=== PATIENT | female | born 1995 | race Caucasian/White ===

== ENCOUNTER 2017-01-10 02:45 | Inpatient (IN) | payer BC ==
[~2017-01-10] VITALS: Ht 170.2 cm; Wt 75.0 kg
[~2017-01-10 02:45] MED LIST: MTR600X PO; PRENTAB26 PO
[2017-01-10] MEDS ORDERED: SODIUM CHLORIDE 0.9% 1000ML 1,000 ML IV STA ×2 (02:55)
[2017-01-10] MEDS ORDERED: MoRPHine SULFATE 4 MG/ML 1 ML CARP\\VIAL IV STA ×2 (02:55→13:31)
[2017-01-10] MEDS ORDERED: ONDANSETRON INJ 2 MG/ML 2 ML VIAL IV STA (02:55)
[2017-01-10 03:18] LABS: BASO % 0.5 %; BASO ABS # 0.05 K/uL (0-0.2); COMPLETE YES; EOS % 1.4 %; HEMATOCRIT 39.4 % (37-47); IG% 0.2 %; LYMPH % 33.3 %; LYMPH ABS # 3.63 K/uL (1.2-3.4); MEAN CORPUSCULAR HEMOGLOBIN 29.5 pg (25-34); MEAN CORPUSCULAR HGB CONC 34.3 g/dl (32-36); MEAN PLATELET VOLUME 10.1 fL (7.4-10.4); MONO % 7.7 %; NEUT % 56.9 %; PLATELET COUNT 278 K/uL (130-400); RED BLOOD COUNT 4.58 M/uL (4.2-5.4)
[2017-01-10 03:29] LABS: URINE APPEARANCE CLEAR (CLEAR); URINE BILIRUBIN NEG (NEG); URINE COLOR YELLOW; URINE EPITHELIAL CELL AUTO >30 /lpf (0-5); URINE NITRITE NEG (NEG); URINE PH 6.5 (4.5-7.5); UROBILINOGEN NEG (NEG); ZZUR CULT IF INDIC CLEAN CATCH YES
[2017-01-10 03:30] LABS: MANUAL MICROSCOPIC REQUIRED? NO; REVIEW REQ? YES
[2017-01-10 03:34] LABS: BUN/CREATININE RATIO 21.6 (10-20); POTASSIUM 4.1 mmol/L (3.5-5.1)
[2017-01-10 03:42] LABS: URINE MUCUS PRESENT (NONE PRSENT)
[2017-01-10 03:50] LABS: PREG INTERNAL NEGATIVE QC NEG CLEAR BACKGROUND; PREG INTERNAL POSITIVE QC POS CONTROL LINE
[2017-01-10] MEDS ORDERED: HYDROmorphone INJ 1 MG/ML SYR IV STA (04:30)
--- NOTE | 2017-01-10 05:12 | EMERGENCY ROOM VISIT NOTE ---
History First contact with patient: 02:52 Chief Complaint: PELVIC PAIN Stated Complaint: PELVIC PAIN History of Present Illness The patient is a 21 year old female who presents to the Emergency Room with complaints of sudden onset of pelvic pain after having intercourse with her attempts to have another child. Last menstrual cycle 2 weeks ago. No history of similar symptoms in the past. No new sexual positions or painful or rough intercourse. Pain currently 8 out of 10 described as throbbing, ranging in severity with movement makes it worse and nothing makes it better. Patient denies chest pain, dyspnea, fever, chills, vomiting, diarrhea, back pain, urinary symptoms, vaginal itching or discharge. Patient does not feel at risk for STI's. Review of Systems See HPI for pertinent positives & negatives. A total of 10 systems reviewed and were otherwise negative. Past Medical/Surgical History Medical Problems: (1) (2) Recurrent urinary tract infection Family History Patient reports no known family medical history. Social History Smoking Status: Never Smoker Alcohol Use: none Drug Use: none Marital Status: Housing Status: lives with family Occupation Status: employed, student Current/Historical Medications No Active Prescriptions or Reported Meds Physical Exam Vital Signs Date Time Temp Pulse Resp B/P (MAP) Pulse Ox O2 Delivery O2 Flow Rate FiO2 01/10/17 02:48 36.7 93 18 124/80 98 Room Air Physical Exam VITALS: Vitals are noted on the nurse's note and reviewed by myself. Vital signs stable. GENERAL: Pleasant female in obvious discomfort, nondiaphoretic, well-developed well-nourished. SKIN: Capillary reflex less than 2 seconds. HEENT: Normocephalic. PERRLA. EOMI. Nares patent. Mucous membranes moist. Neck is supple without nuchal rigidity. HEART: Regular rate and rhythm without murmurs gallops or rubs. LUNGS: Clear to auscultation bilaterally without wheezes, rales or rhonchi. No retractions or accessory muscle use. ABDOMEN: Positive bowel sounds x 4. Normal tympanic percussion. Soft, tender to palpation suprapubic area, no CVA tenderness, without masses or organomegaly. Green sign negative. No guarding or rebound tenderness. MUSCULOSKELETAL: No gross musculoskeletal defects. No pedal edema. NEURO: Patient was alert and oriented to person place and time. Normal sensation to light and sharp touch. No focal neurological deficits. Medical Decision & Procedures Laboratory Results 01/10/17 03:05 Red Blood Count 4.58, Mean Corpuscular Volume 86.0, Mean Corpuscular Hemoglobin 29.5, Mean Corpuscular Hemoglobin Concent 34.3, Mean Platelet Volume 10.1, Neutrophils (%) (Auto) 56.9, Lymphocytes (%) (Auto) 33.3, Monocytes (%) (Auto) 7.7, Eosinophils (%) (Auto) 1.4, Basophils (%) (Auto) 0.5, Neutrophils # (Auto) 6.21, Lymphocytes # (Auto) 3.63, Monocytes # (Auto) 0.84, Eosinophils # (Auto) 0.15, Basophils # (Auto) 0.05 01/10/17 03:05 Test 01/10/17 03:00 01/10/17 03:05 Urine Color YELLOW Urine Appearance CLEAR (CLEAR) Urine pH 6.5 (4.5-7.5) Urine Specific [place] 1.030 (1.000-1.030) Urine Protein NEG (NEG) Urine Glucose (UA) NEG (NEG) Urine Ketones NEG (NEG) Urine Occult Blood NEG (NEG) Urine Nitrite NEG (NEG) Urine Bilirubin NEG (NEG) Urine Urobilinogen NEG (NEG) Urine Leukocyte Esterase MODERATE (NEG) Urine WBC (Auto) 10-30 /hpf (0-5) Urine RBC (Auto) 0-4 /hpf (0-4) Urine Hyaline Casts (Auto) 1-5 /lpf (0-5) Urine Epithelial Cells (Auto) >30 /lpf (0-5) Urine Bacteria (Auto) 1+ (NEG) Urine Mucus PRESENT (NONE PRSENT) Urine Sperm (Auto) White Blood Count 10.90 K/uL (4.8-10.8) Red Blood Count 4.58 M/uL (4.2-5.4) Hemoglobin 13.5 g/dL (12.0-16.0) Hematocrit 39.4 % (37-47) Mean Corpuscular Volume 86.0 fL (80-100) Mean Corpuscular Hemoglobin 29.5 pg (25-34) Mean Corpuscular Hemoglobin Concent 34.3 g/dl (32-36) Platelet Count 278 K/uL (130-400) Mean Platelet Volume 10.1 fL (7.4-10.4) Neutrophils (%) (Auto) 56.9 % Lymphocytes (%) (Auto) 33.3 % Monocytes (%) (Auto) 7.7 % Eosinophils (%) (Auto) 1.4 % Basophils (%) (Auto) 0.5 % Neutrophils # (Auto) 6.21 K/uL (1.4-6.5) Lymphocytes # (Auto) 3.63 K/uL (1.2-3.4) Monocytes # (Auto) 0.84 K/uL (0.11-0.59) Eosinophils # (Auto) 0.15 K/uL (0-0.5) Basophils # (Auto) 0.05 K/uL (0-0.2) RDW Standard Deviation 40.6 fL (36.4-46.3) RDW Coefficient of Variation 12.9 % (11.5-14.5) Immature Granulocyte % (Auto) 0.2 % Immature Granulocyte # (Auto) 0.02 K/uL (0.00-0.02) Anion Gap 5.0 mmol/L (3-11) Est Creatinine Clear Calc Drug Dose 93.3 ml/min Estimated GFR () 92.6 Estimated GFR (Non- 79.9 BUN/Creatinine Ratio 21.6 (10-20) Calcium Level 9.0 mg/dl (8.5-10.1) Human Chorionic Gonadotropin, Qual NEG (NEG) Medications Administered Medications (Trade) Dose Ordered Sig/Ayleen Route Start Time Stop Time Status Last Admin Dose Admin Sodium Chloride 1,000 ml @ 999 mls/hr Q1H1M STAT IV 01/10/17 02:55 01/10/17 03:55 DC 01/10/17 03:13 999 MLS/HR Sodium Chloride 1,000 ml @ 125 mls/hr Q8H STAT IV 01/10/17 02:55 01/10/17 10:54 01/10/17 03:13 125 MLS/HR Morphine Sulfate (MoRPHine SULFATE INJ) 4 mg NOW STAT IV 01/10/17 02:55 01/10/17 02:58 DC 01/10/17 03:12 4 MG Ondansetron HCl (Zofran Inj) 4 mg NOW STAT IV 01/10/17 02:55 01/10/17 02:58 DC 01/10/17 03:12 4 MG Hydromorphone HCl (Dilaudid Inj) 1 mg NOW STAT IV 01/10/17 04:30 01/10/17 04:32 DC 01/10/17 04:46 1 MG ED Course Prior records/ancillary studies reviewed. Triage Nursing notes reviewed. Additional history obtained from family The patient's history was concerning for pelvic pain. Differential diagnosis: Differential diagnosis includes salpingitis, , ectopic , incomplete , septic , ruptured ovarian cyst, ovarian torsion, Mittelschmerz, endometritis, dysmenorrhea, appendicitis, PID, and others. Physical examination findings: As above. ER treatment provided: Morphine, Zofran, IV fluids, Dilaudid On reassessment the patient felt better. Diagnostics interpreted by me: The labs revealed stable H&H. Negative hCG, urine concerning for contamination and sent for culture. Imaging studies: US PELVIC/ENDOVAG: Comparison: 06/24/2015 Normal appearance of uterus and endometrium. Echogenic free fluid within the posterior cul-de-sac suggesting blood products. Complex cystic lesion without internal vascularity within right ovary. This appears somewhat crenulated measuring 2.3 x 1.9 x 2.4 cm. This may represent an involuting or ruptured hemorrhagic cyst/follicle. Otherwise, the right ovary is unremarkable. Normal sonographic appearance of left ovary. 8 mm left paraovarian cyst. Radiologist: Terrance Mauricio MD Consultation: A consultation was placed with Dr Pascual. The case was discussed and diagnostics were reviewed. The patient was evaluated in the ER for further treatment. He will admit this patient to his service. Exam and history seem consistent with ruptured ovarian cyst and patient was still and moderate amount of pain despite being medicated multiple times as above. Patient is agreeable to treatment plan of admission. She will be evaluated by [facility]. Patient had stable H&H and vital signs. Urine concerning for contamination and sent for culture. By the evaluation outlined above emergent etiologies such as salpingitis, , ectopic , incomplete , septic , ovarian torsion, Mittelschmerz, endometritis, dysmenorrhea, appendicitis, PID, as well as others were deemed relatively unlikely. The pt informed about the findings as listed above. All questions were answered and pleased with the treatment. Case reviewed with my attending. Medical Decision As above Medication Reconcilliation Current Medication List: was personally reviewed by me Blood Pressure Screening Patient's blood pressure: Normal blood pressure Impression Primary Impression: Hemorrhagic ovarian cyst Departure Information Dispostion Being Evaluated By Hospitalist Condition GOOD Prescriptions No Active Prescriptions or Reported Meds Referrals Xu Muro M.D. (PCP) Patient Instructions [facility]
[2017-01-10 05:50] VITALS: BP 106/67; PULSE 72; TEMP 36.7; O2SAT 97; Ht 170.2 cm; Wt 75.0 kg
[2017-01-10] MEDS: SODIUM CHLORIDE 0.9% 1000ML 1,000 ML IV SCH ×3 (06:00→22:40)
--- NOTE | 2017-01-10 07:18 | DIAGNOSTIC IMAGING REPORT ---
PELVIC ULTRASOUND, TRANSABDOMINAL AND TRANSVAGINAL HISTORY: severe pelvic pain after sex COMPARISON: Pelvic ultrasound 11/10/2014. FINDINGS: Uterus: Unremarkable. Endometrial stripe: 1.5 cm in thickness. This is top normal in thickness. Right ovary: Normal in size and demonstrates normal color flow. A 2.4 x 2.3 x 1.9 cm thick-walled complex cyst. Left ovary: Normal in size and demonstrates normal color flow. A 9 mm paraovarian cyst. Miscellaneous:Small amount of complex fluid within the cul-de-sac. IMPRESSION: 1. Small amount of complex fluid in the cul-de-sac suggestive of blood products. This may be secondary to the ruptured left complex cyst/hemorrhagic cyst. 2. Normal right ovary. 3. Endometrial stripe is top normal in thickness. Electronically signed by: Miguel Angel Sinha M.D. 01/10/2017 7:17 AM Dictated Date/Time: 01/10/2017 7:13 AM
[2017-01-10 07:20] VITALS: BP 106/68; PULSE 69; TEMP 36.6; O2SAT 100
[2017-01-10] MEDS: HYDROmorphone INJ 1 MG/ML SYR IV PRN ×6 (07:27→23:57)
[2017-01-10] MEDS ORDERED: ONDANSETRON INJ 2 MG/ML 2 ML VIAL ONE (10:58)
[2017-01-10] MEDS ORDERED: NURSING VERBAL MED ORDER ONE ×2 (11:00→21:45)
[2017-01-10 12:00] VITALS: BP 92/59; PULSE 67; TEMP 36.8; O2SAT 100
[2017-01-10] MEDS ORDERED: MoRPHine SULFATE 4 MG/ML 1 ML CARP\\VIAL ONE (13:35)
[2017-01-10] MEDS ORDERED: OPTIRAY 320 IV PRN (20:15)
[2017-01-10 20:30] VITALS: BP 115/80; PULSE 82; TEMP 36.8; O2SAT 100
[2017-01-10] MEDS ORDERED: ONDANSETRON INJ 2 MG/ML 2 ML VIAL IV PRN (21:45)
[2017-01-10] MEDS ORDERED: ONDANSETRON INJ 6 MG in DEXTROSE 5% 50ML 50 ML IV PRN (21:45)
[2017-01-11 00:01] VITALS: BP 101/66; PULSE 69; TEMP 36.8; O2SAT 99
[2017-01-11 04:00] VITALS: BP 96/62; PULSE 73; TEMP 36.4
[2017-01-11] MEDS: HYDROmorphone INJ 1 MG/ML SYR IV PRN ×2 (05:01→07:39)
--- NOTE | 2017-01-11 06:26 | DIAGNOSTIC IMAGING REPORT ---
CT ABD/PELVIS IV AND ORAL CONT CLINICAL HISTORY: Generalized abdominal pain COMPARISON STUDY: 02/12/2011 TECHNIQUE: Following the IV administration of 94 mL of Optiray-320, CT scan of the abdomen and pelvis was performed from the lung bases to the proximal femurs. Images are reviewed in the axial, sagittal, and coronal planes. IV contrast was administered without complication. A dose lowering technique was utilized adhering to the principles of ALARA. CT DOSE: 327.20 mGy.cm FINDINGS: Lower chest: There are mild dependent atelectatic changes. Liver: The contrast-enhanced liver is normal in size, contour, and attenuation. There is no intrahepatic biliary ductal dilatation. The hepatic veins and portal veins are patent. Gallbladder: Unremarkable. Spleen: Normal in size and attenuation. Pancreas: Unremarkable. Adrenal glands: Unremarkable. Kidneys: There is symmetric renal cortical enhancement. The kidneys are normal in size without hydronephrosis. Bowel: There are no transition zones indicate bowel obstruction. There is no evidence of acute diverticulitis. The proximal and mid appendix appears normal. There is slight indistinctness of the distal appendix but this may be a secondary finding. Peritoneum: There is a small amount of free pelvic fluid. Vasculature: The abdominal aorta is normal in course and caliber. Adenopathy: None. Pelvic viscera: There is a 27 mm involuting right ovarian cyst. There is slight indistinctness of the fat superior to the right ovary. A ruptured ovarian cyst must be considered. Skeletal structures: No destructive osseous lesions are seen. IMPRESSION: 1. No evidence of bowel obstruction. No evidence of free air 2. Collapse/involuting right ovarian cyst with a small amount of complex free fluid in the pelvis. This may indicate a ruptured ovarian cyst 3. No evidence of acute appendicitis. No evidence of acute diverticulitis. Electronically signed by: Miller Milian M.D. 01/11/2017 6:25 AM Dictated Date/Time: 01/11/2017 6:20 AM
[2017-01-11 07:30] VITALS: BP 125/77; PULSE 77; TEMP 36.8; O2SAT 99
[2017-01-11] MEDS ORDERED: IBUPROFEN 800 MG TAB PO PRN (10:00)
--- NOTE | 2017-01-11 10:18 | Discharge Instructions ---
Discharge Instructions Date of Service Jan 11, 2017. Admission Reason for Admission: Pelvic Pain Discharge Discharge Diagnosis / Problem: ruptured ovarian cyst Discharge Goals Goal(s): Continuing [employer] care Activity Recommendations Activity Limitations: per Instructions/Follow-up section Lifting Limitations: gradually increase as tolerated Exercise/Sports Limitations: as tolerated May Resume Sexual Activity: after follow-up appointment Shower/Bathe: no limitations Driving or Machine Use: resume 3 days after discharge . Instructions / Follow-Up Instructions / Follow-Up ACTIVITY RECOMMENDATIONS: * Avoid tampons, douching, hot tubs, pools, and intercourse until bleeding has stopped. * May shower as usual. * No strenuous activity for 24-48 hours. After 24-48 hours, you can do anything you feel like doing (driving and sports are okay). RETURN TO SCHOOL/WORK: * You may return to school or work after 24 hours unless specified by your physician. DIET: * Resume previous diet. MEDICATIONS: Resume previous medications unless instructed otherwise by your surgeon. Ibuprofen 200mg 2-3 tablets every 4-6 hours as needed --OR-- Aleve 2 tablets every 8-12 hours as needed for post-operative discomfort Medications are over the counter. Tylenol may be used if above medications are contraindicated or not preferred. Medication should be taken with food or milk. do not take on an empty stomach. SPECIAL CARE INSTRUCTIONS: * Check temperature twice daily for one week. Report any elevation over 101 degrees. * Call office if you experience increased pelvic pain or discomfort not relieved by pain medicine, if you have foul smelling vaginal discharge, if you have bleeding that is heavier than a normal menstrual flow. If you are changing a maxi pad every 1- 2 hours, this is too heavy. vaginal spotting is normal for 1-2 weeks. FOLLOW UP VISIT: Call your doctor's office for a post-operative visit. Current Hospital Diet Patient's current hospital diet: Regular Diet Discharge Diet Recommended Diet: Regular Diet Pending Studies Studies pending at discharge: no Medical Emergencies . Who to Call and When: Medical Emergencies: If at any time you feel your situation is an emergency, please call 911 immediately. . Non-Emergent Contact Non-Emergency issues call your: Primary Care Provider . . "Provider Documentation" section prepared by Ector London. . VTE Core Measure Inpt VTE Proph given/why not?: Treatment not indicated
[2017-01-11 10:39] VITALS: BP 125/77; PULSE 77; TEMP 36.8; O2SAT 99
[2017-01-11] MEDS ORDERED: MTR800 PO ×2 (11:00)
[2017-01-11] MEDS ORDERED: ACET-749 PO ×2 (11:02)
--- NOTE | 2017-01-11 11:04 | OB/GYN Progress Note ---
CLIENT SUPPORT ASSOCIATE Progress Note Date of Service Jan 11, 2017. Subjective conversation w/ family, physical exam Ambulation: limited ambulation Voiding: no voiding problems Passing Gas: Yes Diet Tolerance: Regular Diet Objective Vital Signs Date Time Temp Pulse Resp B/P (MAP) Pulse Ox O2 Delivery O2 Flow Rate FiO2 01/11/17 10:39 36.8 77 18 99 Room Air 01/11/17 07:30 99 Room Air 01/11/17 07:30 36.8 77 18 125/77 (93) 99 Room Air 01/11/17 04:00 36.4 73 18 96/62 (73) Room Air 01/11/17 00:01 99 Room Air 01/11/17 00:01 36.8 69 18 101/66 (78) 99 Room Air 01/10/17 20:30 36.8 82 20 115/80 (92) 100 Room Air 01/10/17 15:40 Room Air 01/10/17 12:00 36.8 67 16 92/59 (70) 100 Room Air Physical Exam General Appearance: mild distress Abdomen: non tender, soft Extremities: non-tender, normal inspection, no pedal edema Assessment and Plan Day Number: 1 Continue Routine Care: discharged home
--- NOTE | 2017-01-17 08:07 | DISCHARGE SUMMARY ---
HOSPITAL COURSE AND REASON FOR ADMISSION: The patient is a 21-year-old female, who presents to the ER after complaining of sudden onset of lower quadrant pain. The patient had been having intercourse and comes in with a severe pain, rating her pain at 8/10. She was admitted through the ER with severe pain. Workup done included a CBC with a normal white count of 10.9, hemoglobin 13.5, and hematocrit 39.4. Electrolytes are within normal limits. Urine within normal limits. Pelvic ultrasound revealed a moderate amount of complex cystic fluid within the right ovary, somewhat irregular, but this was consistent with a possible ruptured hemorrhagic cyst. There was also an 8-mm paraovarian cyst. There was some fluid in the cul-de-sac. Her test was negative. She was admitted for observation and IV fluids with pain medication. Hospital course was uncomplicated. She was given IV Dilaudid. Her pain improved and her diet improved and she was discharged in stable condition. Home going instructions were given. The patient was discharged on 01/11/2017. She was given Tylenol with codeine for pain along with Motrin 800 mg for pain. She was told to follow up in the office in 1 week and to call with any problems. Discharge diagnosis was a hemorrhagic ruptured ovarian cyst on the right. Condition on discharge is stable. Regular diet on discharge. BUCK
--- NOTE | 2017-01-17 23:27 | HISTORY & PHYSICAL EXAMINATION ---
DATE OF CONSULTATION: 01/10/2017 Consult was from LUDWIN Philip in the Emergency Room. CHIEF COMPLAINT: Pelvic pain. HISTORY OF PRESENT ILLNESS: This is a 21-year-old who presented to the Emergency Room on 01/10/2017 with pelvic pain which started immediately after intercourse. She described this pain as throbbing and severity of the pain was 8/10. The patient reported that pain was immediately after intercourse. She had no nausea, no diarrhea, no chest pain, no fever, no chills. She denied any urinary tract symptoms or PID symptoms. She presented to the Emergency Room because the pain was not improving. In the Emergency Room, she was given several doses of narcotics with no improvement. NANOTECHNOLOGY ENGINEERING TECHNOLOGIST was therefore consulted. In the Emergency Room, she also had pelvic ultrasound which was suspicious for ruptured hemorrhagic ovarian cyst. PAST MEDICAL HISTORY: History of recurrent UTIs. PAST SURGICAL HISTORY: None. SOCIAL HISTORY: The patient denied tobacco, drug or alcohol use. FAMILY HISTORY: Noncontributory. PHYSICAL EXAMINATION: VITAL SIGNS: Temperature was 36.7, pulse was 93, respirations 18, blood pressure was 124/80. GENERAL: Well-developed, well-nourished white female in moderate discomfort. HEART: S1, S2, regular rhythm and rate. LUNGS: Clear to auscultation bilaterally. ABDOMEN: Slightly tender. No guarding or rebound. PELVIC: Unremarkable. There was no cervical motion tenderness. She had generalized pelvic tenderness and discomfort. EXTREMITIES: No cyanosis, clubbing or edema. NEURO: The patient was alert, awake and oriented to time, person and place. LABS: WBC was 10.9, hemoglobin was 13.5, hematocrit was 39.4, platelets were 278. Complete chemistry was unremarkable. Pelvic ultrasound was reviewed in radiology. ASSESSMENT AND PLAN: A 21-year-old with sudden pelvic pain. Ultrasound is done and is suspicious for possibly ruptured hemorrhagic ovarian cyst. The patient has received several narcotics in the ER and continues to have significant pain. Plan is therefore to admit patient and monitor patient overnight and also control her pain.
== END 2017-01-11 11:35 | disposition home or self-care (01) | DRG 761 ==
LOC: C.EDB 02:46 → C.MS4N 05:20 → ENRESERV 05:43
PROVIDERS: ADMIT Obstetrics & Gynecology; ATTEND Obstetrics & Gynecology
DX: N83.291 Other ovarian cyst, right side (principal)

== ENCOUNTER 2017-01-14 17:10 | Emergency (ER) | payer BC ==
[~2017-01-14] VITALS: Ht 170.2 cm; Wt 73.9 kg
[~2017-01-14 17:10] MED LIST changes: +ACET-749 PO; +MTR800 PO
[2017-01-14 17:16] VITALS: Ht 170.2 cm; Wt 73.9 kg
[2017-01-14] MEDS ORDERED: SODIUM CHLORIDE 0.9% 1000ML 1,000 ML IV STA (17:31)
[2017-01-14] MEDS ORDERED: ONDANSETRON INJ 2 MG/ML 2 ML VIAL IV STA (17:31)
[2017-01-14] MEDS ORDERED: HYDROmorphone INJ 0.5 MG/0.5 ML SYR IV STA (17:37)
--- NOTE | 2017-01-14 17:40 | EMERGENCY ROOM VISIT NOTE ---
History First contact with patient: 17:21 Chief Complaint: PELVIC PAIN Stated Complaint: DIZZY,FAINY,PELVIC PAIN,RUPTURED OVARIAN CYST History of Present Illness The patient is a 21 year old female who presents to the Emergency Room with complaints of lower abdominal pain, with associated dizziness and feeling faint. She also reports nausea and vomiting, occasional chills, but no fevers, and states she has had some increased urinary frequency and hesitancy. She denies any vaginal bleeding or unusual discharge. She describes the pain as constant, crampy and sharp, feels like "labor pains", rated as 9/10. Patient was evaluated on 01/10 for similar pain, she was found to have a ruptured right ovarian cyst and was admitted by [facility] service, discharged 3 days ago. She states that she had been feeling much improved after being discharged, however yesterday her pain started to come back. She states she has been taking ibuprofen 800 mg with minimal improvement. Yesterday her pain became so severe that she passed out. She denies any injuries. When asked about her previous pain management, she states "the morphine didn't touch my pain before, they had to give me something that starts with a D." She denies any chest pain, shortness of breath, palpitations, back pain, diarrhea or constipation, blood in her stool, rash. Review of Systems A complete 10 point review of systems was reviewed with the patient with pertinent positives and negatives as per history of present illness. All else were negative. Past Medical/Surgical History Medical Problems: (1) (2) Recurrent urinary tract infection Family History Patient reports no known family medical history. Social History Smoking Status: Never Smoker Alcohol Use: none Drug Use: none Marital Status: Housing Status: lives with family Occupation Status: employed, student Current/Historical Medications Scheduled Cephalexin Monohydrate (Keflex), 500 MG PO TID Scheduled PRN Acetaminophen/Codeine (Tylenol W/Codeine #3), 1 TAB PO Q4H PRN for Pain Ibuprofen (Ibuprofen), 800 MG PO QID PRN for Pain Physical Exam Vital Signs Date Time Temp Pulse Resp B/P (MAP) Pulse Ox O2 Delivery O2 Flow Rate FiO2 01/14/17 21:25 68 16 108/70 98 01/14/17 21:11 68 16 108/70 98 Room Air 01/14/17 18:55 37.0 69 16 109/55 99 Room Air 01/14/17 18:45 70 20 135/70 99 Room Air 01/14/17 17:16 37.0 95 18 150/91 100 Room Air Physical Exam CONSTITUTIONAL: No acute distress, but does appear uncomfortable and in pain. Nontoxic-appearing. Well appearing and well nourished. Alert and oriented X 4 with normal affect. HEENT: Normocephalic, atraumatic. Pupils equal, round and reactive to light, EOMI. TMs normal. Pharynx normal. NECK: Supple, full active range of motion without discomfort. RESPIRATORY: Clear to auscultation bilaterally with no wheezing, crackles, rhonchi or stridor. Equal expansion bilaterally. CARDIOVASCULAR: Regular rate and rhythm with no murmurs, rubs or gallops. Normal peripheral perfusion. No edema. GASTROINTESTINAL: Diffuse, moderate tenderness of the lower abdomen, no guarding , no rebound. No CVA tenderness. Soft, nondistended. Bowel sounds present in all quadrants. MUSCULOSKELETAL: Full range of motion of all joints without discomfort. INTEGUMENTARY: No rash or other significant dermatologic conditions noted. NEUROLOGIC: Cranial nerves II-XII grossly intact. No focal neurologic deficits noted. Medical Decision & Procedures Laboratory Results 01/14/17 17:45 Red Blood Count 4.76, Mean Corpuscular Volume 86.3, Mean Corpuscular Hemoglobin 28.8, Mean Corpuscular Hemoglobin Concent 33.3, Mean Platelet Volume 9.7, Neutrophils (%) (Auto) 64.4, Lymphocytes (%) (Auto) 25.4, Monocytes (%) (Auto) 8.3, Eosinophils (%) (Auto) 1.6, Basophils (%) (Auto) 0.2, Neutrophils # (Auto) 5.31, Lymphocytes # (Auto) 2.09, Monocytes # (Auto) 0.68, Eosinophils # (Auto) 0.13, Basophils # (Auto) 0.02 01/14/17 17:45 Test 01/14/17 17:45 01/14/17 17:50 White Blood Count 8.24 K/uL (4.8-10.8) Red Blood Count 4.76 M/uL (4.2-5.4) Hemoglobin 13.7 g/dL (12.0-16.0) Hematocrit 41.1 % (37-47) Mean Corpuscular Volume 86.3 fL (80-100) Mean Corpuscular Hemoglobin 28.8 pg (25-34) Mean Corpuscular Hemoglobin Concent 33.3 g/dl (32-36) Platelet Count 264 K/uL (130-400) Mean Platelet Volume 9.7 fL (7.4-10.4) Neutrophils (%) (Auto) 64.4 % Lymphocytes (%) (Auto) 25.4 % Monocytes (%) (Auto) 8.3 % Eosinophils (%) (Auto) 1.6 % Basophils (%) (Auto) 0.2 % Neutrophils # (Auto) 5.31 K/uL (1.4-6.5) Lymphocytes # (Auto) 2.09 K/uL (1.2-3.4) Monocytes # (Auto) 0.68 K/uL (0.11-0.59) Eosinophils # (Auto) 0.13 K/uL (0-0.5) Basophils # (Auto) 0.02 K/uL (0-0.2) RDW Standard Deviation 40.8 fL (36.4-46.3) RDW Coefficient of Variation 12.9 % (11.5-14.5) Immature Granulocyte % (Auto) 0.1 % Immature Granulocyte # (Auto) 0.01 K/uL (0.00-0.02) Anion Gap 7.0 mmol/L (3-11) Est Creatinine Clear Calc Drug Dose 120.9 ml/min Estimated GFR () 140.1 Estimated GFR (Non- 120.9 BUN/Creatinine Ratio 13.8 (10-20) Calcium Level 9.5 mg/dl (8.5-10.1) Total Bilirubin 0.4 mg/dl (0.2-1) Direct Bilirubin 0.1 mg/dl (0-0.2) Aspartate Amino Transf (AST/SGOT) 10 U/L (15-37) Alanine Aminotransferase (ALT/SGPT) 12 U/L (12-78) Alkaline Phosphatase 80 U/L (45-117) Total Protein 7.3 gm/dl (6.4-8.2) Albumin 4.0 gm/dl (3.4-5.0) Lipase 127 U/L (73-393) Urine Color YELLOW Urine Appearance CLEAR (CLEAR) Urine pH 7.5 (4.5-7.5) Urine Specific Hudson 1.015 (1.000-1.030) Urine Protein NEG (NEG) Urine Glucose (UA) NEG (NEG) Urine Ketones NEG (NEG) Urine Occult Blood NEG (NEG) Urine Nitrite NEG (NEG) Urine Bilirubin NEG (NEG) Urine Urobilinogen NEG (NEG) Urine Leukocyte Esterase MODERATE (NEG) Urine WBC (Auto) 10-30 /hpf (0-5) Urine RBC (Auto) 0-4 /hpf (0-4) Urine Hyaline Casts (Auto) 1-5 /lpf (0-5) Urine Epithelial Cells (Auto) >30 /lpf (0-5) Urine Bacteria (Auto) NEG (NEG) Urine Test NEG (NEG) Medications Administered Medications (Trade) Dose Ordered Sig/Ayleen Route Start Time Stop Time Status Last Admin Dose Admin Sodium Chloride 1,000 ml @ 999 mls/hr Q1H1M STAT IV 01/14/17 17:31 01/14/17 18:31 DC 01/14/17 17:44 999 MLS/HR Ondansetron HCl (Zofran Inj) 4 mg NOW STAT IV 01/14/17 17:31 01/14/17 17:36 DC 01/14/17 17:47 4 MG Hydromorphone HCl (Dilaudid Inj) 0.5 mg NOW STAT IV 01/14/17 17:37 01/14/17 17:38 DC 01/14/17 17:48 0.5 MG Ketorolac Tromethamine (Toradol Inj) 15 mg NOW STAT IV 01/14/17 18:23 01/14/17 18:24 DC 01/14/17 18:45 15 MG Ceftriaxone Sodium (Rocephin Inj) 1 gm NOW STAT IV 01/14/17 20:15 01/14/17 20:18 DC 01/14/17 20:30 1 GM Acetaminophen 100 ml @ 400 mls/hr NOW STAT IV 01/14/17 20:15 01/14/17 20:29 DC 01/14/17 20:30 400 MLS/HR Medical Decision CC: Patient presenting with complaint of pelvic pain Interpretation of Labs: No leukocytosis, no anemia, no significant electrolyte abnormalities, normal renal function, normal liver enzymes and lipase. UA concerning for large WBCs and leukocyte esterase, suspect possible UTI. Urine culture pending. Urine negative. Differential Diagnosis: Includes, but not limited to ovarian cyst rupture, UTI, dehydration, electrolyte abnormality, anemia, ectopic , among others. Medication Reconciliation: I attest that I have personally reviewed the patient' s current medication list. Vital signs review: I reviewed the patient's vital signs and interpret them as follows: T: Afebrile; BP: Hypertensive; HR: Tachycardic; RR: Within normal limits; Pulse Ox: Within normal limits on room air. Blood pressure screening: The patient was found to have an elevated blood pressure and this was felt to be situational related to pain. Summary: Patient was evaluated at bedside, history of physical exam performed. Patient is alert and in no acute distress, but does appear to be in some pain. She is resting quietly in stretcher. She does have diffuse lower abdominal tenderness to palpation, but no guarding or rebound tenderness. On review of her chart, she had multiple imaging studies just a few days ago including ultrasound and CT scan, showing her ruptured right ovarian cyst. Orders were placed at bedside for labs, UA and urine , IV fluids for hydration, IV Dilaudid, Toradol, and Tylenol for pain. Patient discussed with Dr. Servin, who agrees with my assessment and plan. Labs reviewed as above, no acute abnormalities. UA does appear consistent with a possible UTI, will treat for this. IV Rocephin given in the ED, Rx for Keflex provided. Urine culture pending. Patient reassessed multiple times throughout ED stay, she reports much improved pain, especially after Toradol. I suspect patient may have a UTI but this further aggravating her symptoms from her ruptured ovarian cyst. She does have a follow-up appointment with [facility] tomorrow, encouraged her to keep this. She was given strict return precautions should her symptoms worsen, she verbalized understanding. Patient was discharged home in stable condition and ambulatory. Impression Primary Impression: Urinary tract infection Additional Impression: Pelvic pain Departure Information Dispostion Home / Self-Care Condition GOOD Prescriptions Cephalexin Monohydrate (Keflex) 500 Mg Cap 500 MG PO TID for 7 Days, #21 CAP Prov: Magalie Barajas CRNP 01/14/17 Referrals No Doctor, Assigned (PCP) Patient Instructions Cyst Ruptured Ovarian Tx, ED UTI Cystitis Female, My [facility] Additional Instructions You have been treated in the Emergency Department for a Urinary Tract Infection (UTI). You have been prescribed Keflex to be taken 3 times a day for 7 days. This is an antibiotic. All antibiotics have the potential to cause diarrhea. Stop this medication and contact a medical provider if you were to develop any significant adverse side effects including: wheezing, shortness of breath, passing out, vomiting, or a diffuse rash. Always take antibiotics as directed and COMPLETE the ENTIRE course regardless of the improvement of your symptoms. Continue taking ibuprofen 800 mg every 8 hours, and start taking extra strength Tylenol 1000 mg every 8 hours. You may alternate these 2 medications every 4 hours to help manage your pain better. You may also use a heating pad or warm compresses to your abdomen for comfort. Drink plenty of water and stay well hydrated. Keep your scheduled appointment tomorrow with gynecology for follow-up. Return to the emergency department if your symptoms persist despite treatment plan outlined above or if the following symptoms occur: increased fevers, chills , low back pain, nausea/vomiting, or blood in your urine. Work Instructions Return To Work: 2 days Problem Qualifiers Primary Impression: Urinary tract infection Urinary tract infection type: acute cystitis Hematuria presence: without hematuria Qualified Codes: N30.00 - Acute cystitis without hematuria
[2017-01-14 17:51] LABS: BASO % 0.2 %; BASO ABS # 0.02 K/uL (0-0.2); COMPLETE YES; EOS % 1.6 %; HEMATOCRIT 41.1 % (37-47); IG% 0.1 %; LYMPH % 25.4 %; LYMPH ABS # 2.09 K/uL (1.2-3.4); MEAN CELL VOLUME 86.3 fL (80-100); MEAN CORPUSCULAR HEMOGLOBIN 28.8 pg (25-34); MEAN CORPUSCULAR HGB CONC 33.3 g/dl (32-36); MEAN PLATELET VOLUME 9.7 fL (7.4-10.4); MONO % 8.3 %; NEUT % 64.4 %; PLATELET COUNT 264 K/uL (130-400); RED BLOOD COUNT 4.76 M/uL (4.2-5.4); WHITE BLOOD COUNT 8.24 K/uL (4.8-10.8)
[2017-01-14 18:14] LABS: BUN/CREATININE RATIO 13.8 (10-20); CALCIUM 9.5 mg/dl (8.5-10.1); CREATININE 0.71 mg/dl (0.60-1.20)
[2017-01-14] MEDS ORDERED: KETOROLAC TROMETHAMINE 30 MG/ML VIAL IV STA (18:23)
[2017-01-14 18:28] LABS: URINE APPEARANCE CLEAR (CLEAR); URINE BILIRUBIN NEG (NEG); URINE COLOR YELLOW; URINE EPITHELIAL CELL AUTO >30 /lpf (0-5); URINE NITRITE NEG (NEG); URINE PH 7.5 (4.5-7.5); URINE SPECIFIC GRAVITY 1.015 (1.000-1.030); UROBILINOGEN NEG (NEG); ZZUR CULT IF INDIC CLEAN CATCH YES
[2017-01-14 18:42] LABS: MANUAL MICROSCOPIC REQUIRED? NO; REVIEW REQ? NO
[2017-01-14 18:55] VITALS: TEMP 37
[2017-01-14] MEDS ORDERED: CEFTRIAXONE SOD INJ 1 GM ADDVIAL IV STA (20:15)
[2017-01-14] MEDS ORDERED: ACETAMINOPHEN IV 100 ML IV STA (20:15)
[2017-01-14] MEDS ORDERED: CEPH500C PO (21:08)
[2017-01-14 21:25] VITALS: BP 108/70; PULSE 68; O2SAT 98
== END 2017-01-14 21:25 | disposition home or self-care (01) ==
LOC: C.EDB 17:12 → C.EDC 21:25
DX: N30.00 Acute cystitis without hematuria (principal); R10.2 Pelvic and perineal pain

== ENCOUNTER 2017-04-23 10:08 | Emergency (ER) | payer BC ==
[~2017-04-23] VITALS: Ht 170.2 cm; Wt 71.9 kg
[~2017-04-23 10:08] MED LIST changes: -MTR600X PO; -PRENTAB26 PO
[2017-04-23 10:11] VITALS: TEMP 36.9; Ht 170.2 cm; Wt 71.9 kg
[2017-04-23] MEDS ORDERED: LACTATED RINGER'S 1000ML 1,000 ML IV STA (11:13)
[2017-04-23] MEDS ORDERED: METOCLOPRAMIDE HCL INJ 5 MG/ML 2 ML VIAL IV STA (11:13)
[2017-04-23 11:55] LABS: BASO % 0.2 %; BASO ABS # 0.02 K/uL (0-0.2); COMPLETE YES; EOS % 0.4 %; HEMATOCRIT 42.2 % (37-47); IG% 0.2 %; LYMPH % 16.3 %; LYMPH ABS # 1.53 K/uL (1.2-3.4); MEAN CELL VOLUME 85.1 fL (80-100); MEAN CORPUSCULAR HEMOGLOBIN 29.6 pg (25-34); MEAN CORPUSCULAR HGB CONC 34.8 g/dl (32-36); MEAN PLATELET VOLUME 10.1 fL (7.4-10.4); MONO % 5.8 %; NEUT % 77.1 %; PLATELET COUNT 244 K/uL (130-400); RED BLOOD COUNT 4.96 M/uL (4.2-5.4); WHITE BLOOD COUNT 9.37 K/uL (4.8-10.8)
--- NOTE | 2017-04-23 12:00 | EMERGENCY ROOM VISIT NOTE ---
History First contact with patient: 10:44 Chief Complaint: DEHYDRATION Stated Complaint: DEHYDRATED,UNABLE TO KEEP FLUIDS,9 WKS PREG Nursing Triage Summary: pt reports 9 weeks unable to food or any fluids down. worse in last week. sx have been going on during History of Present Illness The patient is a 22 year old female who presents to the Emergency Room with complaints of nausea, vomiting, and dehydration. The patient is 9 weeks , and states she has been experiencing these symptoms through her entire . The patient states the symptoms have worsened over the past 1 week. She does have a history of similar symptoms with her previous . The patient states she has more recently beginning to feel dizzy and weak. She was at her safe deposit attendant regarding the problems, who did prescribe Diclegis for the symptoms. The patient states this medication has not been helpful, despite taking it 4 times daily. The patient states with her previous , she did need to be seen at the safe deposit attendant's office 3 times weekly for IV fluids and antiemetics. The patient states she has been unable to keep down any food or liquids, to me when she tries. She has continued to urinate, at least once per day. She did not contact her safe deposit attendant regarding the ineffectiveness of the medication. The patient states she has begun to experience some dizziness and weakness. The patient denies any confusion, paresthesias, tachycardia, syncope, diarrhea, constipation , or recent illness. There has been no vaginal bleeding or abdominal pain. Review of Systems A complete 10 point review of systems was reviewed with the patient with pertinent positives and negatives as per history of present illness. All else were negative. Past Medical/Surgical History Medical Problems: (1) (2) Recurrent urinary tract infection Family History Patient reports no known family medical history. Social History Smoking Status: Never Smoker Alcohol Use: none Drug Use: none Marital Status: Housing Status: lives with family Occupation Status: employed, student Current/Historical Medications Scheduled PRN Metoclopramide Hcl (Reglan), 1 TAB PO TID PRN for Nausea or Vomiting Physical Exam Vital Signs Date Time Temp Pulse Resp B/P (MAP) Pulse Ox O2 Delivery O2 Flow Rate FiO2 04/23/17 12:53 85 18 123/80 97 04/23/17 10:11 36.9 78 18 133/83 96 Room Air Physical Exam VITALS: Vitals are noted on the nurse's note and reviewed by myself. Vital signs stable. GENERAL: This is a 22-year-old white female, in no acute distress, nondiaphoretic, well-developed well-nourished. SKIN: The skin was without rashes, erythema, edema, or bruising. There is no tenting of the skin. Capillary reflex less than 2 seconds. HEAD: Normocephalic atraumatic. EARS: External auditory canals clear, tympanic membranes pearly fofana without erythema or effusion bilaterally. EYES: Pupils equal round and reactive to light and accommodation. Conjunctivae without injection, sclerae without icterus. Extraocular movements intact. NOSE: Patent, turbinates without inflammation or discharge. No sinus tenderness. MOUTH: Mucous membranes moist. Tonsils are not enlarged. Pharynx without erythema or exudate. Uvula midline. Airway patent. Tongue does not deviate. NECK: Supple without nuchal rigidity. No lymphadenopathy. No thyromegaly. Cervical spine is nontender. No JVD. HEART: Regular rate and rhythm without murmurs gallops or rubs. LUNGS: Clear to auscultation bilaterally without wheezes, rales or rhonchi. No dullness to percussion. No retractions or accessory muscle use. ABDOMEN: Positive bowel sounds x 4. Normal tympanic percussion. Soft, nontender, without masses or organomegaly. Green sign negative. No guarding or rebound tenderness. MUSCULOSKELETAL: No muscle atrophy, erythema, or edema noted. Full range of motion without joint tenderness in all extremities. No tenderness to palpation. Normal gait. Strength 5/5 throughout. NEURO: Patient was alert and oriented to person place and time. Normal sensation to light and sharp touch. Deep tendon reflexes 2+ throughout. No focal neurological deficits. Medical Decision & Procedures ER Provider Diagnostic Interpretation: CBC was without leukocytosis, anemia, thromboytopenia. PRP was without renal or electrolyte abnormalities to suggest dehydration. Laboratory Results 04/23/17 11:36 Red Blood Count 4.96, Mean Corpuscular Volume 85.1, Mean Corpuscular Hemoglobin 29.6, Mean Corpuscular Hemoglobin Concent 34.8, Mean Platelet Volume 10.1, Neutrophils (%) (Auto) 77.1, Lymphocytes (%) (Auto) 16.3, Monocytes (%) (Auto) 5.8, Eosinophils (%) (Auto) 0.4, Basophils (%) (Auto) 0.2, Neutrophils # (Auto) 7.22, Lymphocytes # (Auto) 1.53, Monocytes # (Auto) 0.54, Eosinophils # (Auto) 0.04, Basophils # (Auto) 0.02 04/23/17 11:36 Test 04/23/17 11:36 White Blood Count 9.37 K/uL (4.8-10.8) Red Blood Count 4.96 M/uL (4.2-5.4) Hemoglobin 14.7 g/dL (12.0-16.0) Hematocrit 42.2 % (37-47) Mean Corpuscular Volume 85.1 fL (80-100) Mean Corpuscular Hemoglobin 29.6 pg (25-34) Mean Corpuscular Hemoglobin Concent 34.8 g/dl (32-36) Platelet Count 244 K/uL (130-400) Mean Platelet Volume 10.1 fL (7.4-10.4) Neutrophils (%) (Auto) 77.1 % Lymphocytes (%) (Auto) 16.3 % Monocytes (%) (Auto) 5.8 % Eosinophils (%) (Auto) 0.4 % Basophils (%) (Auto) 0.2 % Neutrophils # (Auto) 7.22 K/uL (1.4-6.5) Lymphocytes # (Auto) 1.53 K/uL (1.2-3.4) Monocytes # (Auto) 0.54 K/uL (0.11-0.59) Eosinophils # (Auto) 0.04 K/uL (0-0.5) Basophils # (Auto) 0.02 K/uL (0-0.2) RDW Standard Deviation 38.5 fL (36.4-46.3) RDW Coefficient of Variation 12.6 % (11.5-14.5) Immature Granulocyte % (Auto) 0.2 % Immature Granulocyte # (Auto) 0.02 K/uL (0.00-0.02) Anion Gap 7.0 mmol/L (3-11) Est Creatinine Clear Calc Drug Dose 118.2 ml/min Estimated GFR () 136.8 Estimated GFR (Non- 118.0 BUN/Creatinine Ratio 10.3 (10-20) Calcium Level 9.4 mg/dl (8.5-10.1) Medications Administered Medications (Trade) Dose Ordered Sig/Ayleen Route Start Time Stop Time Status Last Admin Dose Admin Lactated Ringer's 1,000 ml @ 999 mls/hr Q1H1M STAT IV 04/23/17 11:13 04/23/17 12:13 DC 04/23/17 11:40 999 MLS/HR Metoclopramide HCl (Reglan Inj) 10 mg NOW STAT IV 04/23/17 11:13 04/23/17 11:15 DC 04/23/17 11:40 10 MG ED Course The patient was seen and evaluated as above. IV access obtained, labs drawn. The patient was given 1 L lactated Ringer's and 10 mg Reglan IV On reevaluation, the patient was feeling much better. She states she was ready to go home. I did encourage the patient to eat some applesauce and drink some jesse jes to verify that she is able to tolerate food and drink. She did tolerate this well. Discharge instructions reviewed, the patient was discharged home in good condition. Medical Decision Differential diagnosis includes hyperemesis gravidarum, gastroenteritis, dehydration, influenza, malignancy, and others. This is a 22-year-old female with past medical history hyperemesis gravidarum with her previous . She presents today with similar symptoms. The patient states she did previously need frequent IVs and antibiotics. She has seen her safe deposit attendant once regarding the problem, but has not seen him again when the medication she was prescribed did not work. She presents to the emergency department today because she has been experiencing some dizziness and weakness in addition to the nausea and vomiting. The patient is concerned she could be dehydrated. She did improve with fluids and Reglan while here in the ER. I do feel that her symptoms are consistent with nausea with vomiting in , possible hyperemesis gravidarum. Medication Reconcilliation Current Medication List: was personally reviewed by me Blood Pressure Screening Patient's blood pressure: Normal blood pressure Impression Primary Impression: Vomiting during Additional Impression: Departure Information Dispostion Home / Self-Care Condition GOOD Prescriptions Metoclopramide Hcl (REGLAN) 10 Mg Tab 1 TAB PO TID Y for Nausea or Vomiting, #30 TAB Prov: Liz Vaughan, MAHESH 04/23/17 Referrals Xu Muro M.D. (PCP) Patient Instructions ED Nausea Vomiting, ED Preg Morning Sickness, My [facility] Additional Instructions You were seen in the emergency department today for nausea and vomiting associated with . You were given 1 L of lactated Ringer's solution and 10 mg Reglan through the IV. Your symptoms did improve with these medications. You have been prescribed Reglan to be used for any nausea or vomiting. Take as prescribed. Please consult with your safe deposit attendant prior to taking this medication. Please follow up with your safe deposit attendant at your regularly scheduled appointment tomorrow. Please drink plenty of fluids and stay well-hydrated. You may want to consider eating some crackers or dry toast prior to getting out of bed in the morning, as this may help with your symptoms. Return to the emergency department for worsening nausea or vomiting, chest pain , dizziness, syncope, headache, confusion, visual disturbances, or other concerning symptoms. Problem Qualifiers Additional Impression: Weeks of gestation: 9 weeks Qualified Codes: Z3A.09 - 9 weeks gestation of
[2017-04-23 12:12] LABS: BUN/CREATININE RATIO 10.3 (10-20); CALCIUM 9.4 mg/dl (8.5-10.1); CREATININE 0.72 mg/dl (0.60-1.20); POTASSIUM 3.9 mmol/L (3.5-5.1)
[2017-04-23] MEDS ORDERED: METO1TAB55 PO (12:41)
[2017-04-23 12:53] VITALS: BP 123/80; PULSE 85; O2SAT 97
[2017-04-30] MEDS ORDERED: MTR600X PO (08:49)
== END 2017-04-23 12:55 | disposition home or self-care (01) ==
LOC: C.EDB 10:10 → C.EDC 12:55
DX: O21.9 Vomiting of pregnancy, unspecified (principal); Z3A.09 9 weeks gestation of pregnancy; Z87.440 Personal history of urinary (tract) infections

== ENCOUNTER 2017-04-30 06:55 | Day surgery (SDC) | payer BC, OTHER ==
--- NOTE | 2017-04-29 15:18 | HISTORY & PHYSICAL EXAMINATION ---
DATE OF ADMISSION: 04/30/2017 HISTORY OF PRESENT ILLNESS: The patient is a 22-year-old female 3, para 1-0-1-1 who is approximately 9 weeks' with a missed . She had an ultrasound which revealed a demise, she is not bleeding and the diagnosis is a missed . OBSTETRICAL HISTORY: x1. PAST MEDICAL HISTORY: Abnormal Pap smear and history of endometriosis in the past. PAST SURGICAL HISTORY: Laparoscopy in 2014 with a diagnosis of adhesions, also past history of colposcopy with biopsies for abnormal Pap. MEDICATIONS: Include Zofran and vitamins. ALLERGIES: PENICILLIN G. SOCIAL HISTORY: Denies smoking. She is . PHYSICAL EXAMINATION: HEENT: Within normal limits. LUNGS: Clear to auscultation. COR: Regular rate and rhythm. ABDOMEN: Soft and gravid. Cervix is closed. NEUROLOGICALLY: Intact. ASSESSMENT: Missed , O positive blood type. PLAN: D&E in the OR.
[2017-04-29 16:33] LABS: BASO % 0.2 %; BASO ABS # 0.03 K/uL (0-0.2); EOS % 0.6 %; EOS ABS # 0.08 K/uL (0-0.5); HEMATOCRIT 42.9 % (37-47); HEMOGLOBIN 14.7 g/dL (12.0-16.0); IG# 0.03 K/uL (0.00-0.02); LYMPH % 20.6 %; LYMPH ABS # 2.55 K/uL (1.2-3.4); MEAN CELL VOLUME 85.6 fL (80-100); MEAN CORPUSCULAR HEMOGLOBIN 29.3 pg (25-34); MEAN CORPUSCULAR HGB CONC 34.3 g/dl (32-36); MEAN PLATELET VOLUME 10.5 fL (7.4-10.4); MONO % 7.7 %; MONO ABS # 0.95 K/uL (0.11-0.59); NEUT % 70.7 %; NEUT ABS # 8.74 K/uL (1.4-6.5); PLATELET COUNT 270 K/uL (130-400); RED CELL DISTRIBUTION WIDTH CV 12.6 % (11.5-14.5); RED CELL DISTRIBUTION WIDTH SD 38.9 fL (36.4-46.3); WHITE BLOOD COUNT 12.38 K/uL (4.8-10.8)
[2017-04-29 16:47] VITALS: BMI 24.0
[2017-04-29 16:51] VITALS: Ht 170.2 cm; Wt 71.4 kg
[~2017-04-30] VITALS: Ht 170.2 cm; Wt 71.4 kg
[~2017-04-30 06:55] MED LIST changes: -ACET-749 PO; +LACTATED RINGER'S 1000ML 1,000 ML IV SCH; +METO1TAB55 PO; -MTR800 PO
[2017-04-30 07:39] VITALS: BP 136/77; PULSE 95; TEMP 37.2; O2SAT 100
[2017-04-30] MEDS: LACTATED RINGER'S 1000ML 1,000 ML IV SCH ×2 (07:56→11:37)
[2017-04-30] MEDS ORDERED: SILVER NITR/POTASSIUM NITRATE APPLICATOR ONE (07:58)
--- NOTE | 2017-04-30 08:01 | History & Physical Bridge Note ---
H&P Re-Evaluation Bridge Note: I have examined the patient, reviewed the History & Physical and in the interval since the performance of the History & Physical I have noted the following changes of clinical significance: No changes noted
[2017-04-30] MEDS ORDERED: ONDANSETRON INJ 2 MG/ML 2 ML VIAL IV PRN ×2 (08:15→09:00)
[2017-04-30] MEDS ORDERED: ATROPINE SULFATE 0.1 MG/ML 5ML SYR IV PRN (08:15)
[2017-04-30] MEDS ORDERED: PROMETHAZINE HCL INJ 12.5 MG in SODIUM CHLORIDE 0.9% 50ML 50 ML IV PRN (08:15)
[2017-04-30] MEDS ORDERED: EpHEDrine SULFATE INJ 50 MG/ML AMP IV PRN (08:15)
--- NOTE | 2017-04-30 08:48 | [facility] Post Operative Brief Note ---
Immediate Operative Summary Operative Date Apr 30, 2017. Pre-Operative Diagnosis Missed 9 weeks Post-Operative Diagnosis Missed 9 weegs Procedure(s) Performed Dilation and Evacuation Surgeon Dr London [employer] Employee Surgeon(s) None Estimated Blood Loss 25ML Findings products of conception Fluids (cc crystalloids) 700 ml. Specimens A: Products of Conception Drains none Anesthesia LMA Complication(s) None Disposition Recovery Room / PACU
[2017-04-30] MEDS ORDERED: MTR600X PO (08:49)
[2017-04-30] MEDS ORDERED: SODIUM CHLORIDE 0.9% 1000ML 1,000 ML IV SCH (08:52)
--- NOTE | 2017-04-30 08:52 | Discharge Instructions ---
Discharge Instructions Date of Service Apr 30, 2017. Admission Reason for Admission: Missed Discharge Discharge Diagnosis / Problem: missed 9 weeks Discharge Goals Goal(s): Routine recovery after surgery Activity Recommendations Activity Limitations: as noted below Lifting Limitations: gradually increase as tolerated Exercise/Sports Limitations: gradually increase as tolerated May Resume Sexual Activity: after follow-up appointment Shower/Bathe: no limitations Driving or Machine Use: resume 1 day after discharge . Instructions / Follow-Up Instructions / Follow-Up ACTIVITY RECOMMENDATIONS: * Avoid tampons, douching, hot tubs, pools, and intercourse until bleeding has stopped. * May shower as usual. * No strenuous activity for 24-48 hours. After 24-48 hours, you may do anything you feel like doing (driving and sports are okay). SPECIAL CARE INSTRUCTIONS: Special Diet: * Mild nausea may occur in the immediate post-operative period. * Take clear liquids such as tea, cola or bouillon until all nausea has subsided; you may then resume your normal diet. Special Care: * Light bleeding and vaginal spotting can last from a few days to 3-4 weeks. Call your doctor if bleeding becomes heavier than the heaviest part of your period. * Check your temperature twice a day for one week. If it goes above 100.4 degrees Fahrenheit (38.0 Celsius), notify your doctor. * Call your doctor's office for an appointment for 6 weeks after your surgery. FOLLOW-UP VISIT: Call your doctor's office for an appointment for 6 weeks after your surgery. Current Hospital Diet Patient's current hospital diet: Discharge Diet Recommended Diet: Regular Diet Fluid Restriction: None Procedures Procedures Performed: Dilation and Evacuation Pending Studies Studies pending at discharge: no Medical Emergencies . Who to Call and When: Medical Emergencies: If at any time you feel your situation is an emergency, please call 911 immediately. . Non-Emergent Contact Non-Emergency issues call your: Primary Care Provider . . "Provider Documentation" section prepared by Ector London. . VTE Core Measure Inpt VTE Proph given/why not?: Treatment not indicated
[2017-04-30] MEDS ORDERED: MoRPHine SULFATE 2 MG/ML CARP IV PRN ×2 (09:00)
[2017-04-30] MEDS ORDERED: IBUPROFEN 600 MG TAB PO PRN (09:00)
[2017-04-30] MEDS ORDERED: KETOROLAC TROMETHAMINE 30 MG/ML VIAL IV. PRN (09:00)
[2017-04-30] MEDS ORDERED: OXYCODONE/ACETAMINOPHEN 5-325 TAB PO PRN (09:00)
[2017-04-30] MEDS: FENTANYL CITRATE INJ 50 MCG/1 ML 2 ML VIAL IV PRN ×3 (09:21→09:36)
[2017-04-30 10:00] VITALS: BP 127/65; PULSE 70; TEMP 36.9; O2SAT 99
[2017-04-30 10:30] VITALS: BP 129/60; PULSE 77; O2SAT 99
--- NOTE | 2017-04-30 10:42 | Anesthesiology Progress Note ---
Anesthesia Post Op Note Date & Time Apr 30, 2017 at 10:42 Vital Signs Pain Intensity: 4 Vital Signs Past 12 Hours Date Time Temp Pulse Resp B/P (MAP) Pulse Ox O2 Delivery O2 Flow Rate FiO2 04/30/17 10:00 36.9 70 16 127/65 99 Room Air 04/30/17 09:55 36.6 72 15 128/70 99 Room Air 04/30/17 09:45 76 14 142/70 99 Room Air 04/30/17 09:35 87 18 143/87 98 Room Air 04/30/17 09:25 78 15 132/75 100 Room Air 04/30/17 09:15 82 16 117/78 100 Oxymask 10 04/30/17 09:05 86 13 146/81 100 Oxymask 10 04/30/17 08:58 36.2 90 18 152/80 100 Oxymask 10 04/30/17 07:39 37.2 95 16 136/77 (96) 100 Room Air Notes Mental Status: alert / awake / arousable, participated in evaluation Pt Amnestic to Procedure: Yes Nausea / Vomiting: adequately controlled Pain: adequately controlled Airway Patency, RR, SpO2: stable & adequate BP & HR: stable & adequate Hydration State: stable & adequate Anesthetic Complications: no major complications apparent
[2017-04-30 11:00] VITALS: BP 120/64; PULSE 99; TEMP 36.6; O2SAT 100
[2017-04-30] MEDS ORDERED: NURSING VERBAL MED ORDER ONE (11:30)
--- NOTE | 2017-04-30 11:39 | OPERATIVE REPORT ---
DATE OF OPERATION: 04/30/2017 PREOPERATIVE DIAGNOSIS: Missed , 9 weeks. POSTOPERATIVE DIAGNOSIS: Same. PROCEDURE: D&E. SURGEON: Ector London MD. ANESTHESIA: LMA anesthesia. COMPLICATIONS: None. FINDINGS: Products of conception. Blood type O positive. ESTIMATED BLOOD LOSS: 25 mL. URINE OUTPUT: 100 mL. TOTAL FLUIDS: 700 mL. DRAINS: None. DISPOSITION: To recovery room. CLINICAL HISTORY: The patient is a 22-year-old female para 1-0-1-1 at 9 weeks with a missed and she had an ultrasound which revealed a demise. The patient was given options for expectant management versus surgery and she opted for D&E. She was given informed consent including the risks, benefits and alternatives to the procedure. A timeout was called prior to the start of the procedure. The patient did not receive any antibiotics. DESCRIPTION OF PROCEDURE: After satisfactory LMA anesthesia, the patient was prepped and draped in usual sterile fashion. A straight catheterization was used to empty the bladder of 100 mL of clear urine. Exam under anesthesia revealed the uterus to be approximately 10 week's size, anteverted. Weighted speculum was then placed in the posterior vault of the vagina. An Allis clamp was then used to grab the anterior lip of the cervix. The uterus was then sounded to approximately 10 cm and then dilated with Hegar dilators. A #8 curved curet was then introduced sectioning and curetting out products of conception. Sharp endometrial curet was then used curetting out minimal tissue. At the end of the procedure, 20 units of oxytocin was started in the IV. No active bleeding was noted at the end of the procedure. The instruments were all then removed and the patient was stable. She was placed on a stretcher and taken to recovery room in stable condition. The final EBL 25 mL. Final sponge, needle and instrument counts being correct. The patient will be discharged later today as an outpatient. I attest to the content of the Intraoperative Record and any orders documented therein. Any exception s are noted below.
[2017-04-30 12:20] VITALS: BP 111/56; PULSE 77; TEMP 37; O2SAT 98
== END 2017-04-30 12:30 | disposition home or self-care (01) ==
LOC: C.ACU 06:55
PROVIDERS: ATTEND Obstetrics & Gynecology
DX: O02.1 Missed abortion (principal); Z88.0 Allergy status to penicillin

== ENCOUNTER 2020-06-02 19:07 | Observation (INO) ==
[2020-06-02] MEDS ORDERED: METOCLOPRAMIDE HCL INJ 5 MG/ML 2 ML VIAL IV STA (21:26)
[2020-06-02] MEDS ORDERED: SODIUM CHLORIDE 0.9% 1000ML 1,000 ML IV ONE (21:26)
[2020-06-02] MEDS ORDERED: diphenhydrAMINE 50 MG/ML VIAL IV STA (21:26)
[2020-06-02] MEDS ORDERED: FAMOTIDINE 20MG/5ML IV PUSH IV STA (21:26)
--- NOTE | 2020-06-02 21:35 | Emergency Department Note ---
Impression & Plan Vomiting, , Hematemesis, Hypokalemia ED Provider Note NAME: VENU CASIANO AGE: 25 SEX: F : 1995 ARRIVES VIA: Walk-In INFORMANT: [Patient] ED PROVIDER(S): [Ilya Castillo MD] CHIEF COMPLAINT: Vomiting HISTORY OF PRESENT ILLNESS: The patient is a 25-year-old female with a diagnosis of hyperemesis gravidarum. She is a G2, she states that she is currently 11 weeks . The patient had minimal issues with her first . The patient receives IV fluids 3 times a week. She has been in our ED for hyperemesis. She has required IV fluids. The patient presents with vomiting despite her medications at home. She is on multiple meds at home without relief. The patient states that she is vomiting 20 times a day. She now is vomiting some blood and her throat is so sore it is difficult to even swallow. She is concerned something has been torn. There is no abdominal pain, she has not had vaginal bleeding, no fever, no shortness of breath. She rates the pain in her throat as severe, especially when she swallows REVIEW OF SYSTEMS: See HPI for pertinent positives and negatives. A total of ten systems were reviewed and were otherwise negative. PMHx/PSHx: See Below SOCIAL HISTORY: See Below. PHYSICAL EXAM: GENERAL: Patient is in no acute distress. HEENT: No acute trauma, normocephalic atraumatic, mucous membranes moist, no nasal congestion, no scleral icterus. There is irritation to the back of the throat and the uvula consistent with potential acid burn. NECK: No stridor, no adenopathy, no meningismus, trachea is midline. LUNGS: Clear to auscultation bilaterally, no wheeze, no rhonchi, breath sounds equal. HEART: Without murmurs gallops or rubs, regular rate and rhythm. ABDOMEN: Soft, nontender, bowel sounds positive, no hernias, no peritonitis. EXTREMITIES: No cyanosis or edema, full range of motion of all the joints without pain or difficulty, no signs for acute trauma. NEUROLOGIC: Oriented x 3, no acute motor or sensory deficits, no focal weakness. SKIN: No rash, no jaundice, no diaphoresis. DIFFERENTIAL DIAGNOSIS: Dehydration, electrolyte imbalance, hyperemesis, Boerhaave syndrome, Rosy- Luz tear, esophageal irritation, esophageal abrasion, anemia, reflux. EMERGENCY DEPARTMENT COURSE/PROCEDURES: MEDICAL DECISION MAKING: There is a very mild leukocytosis, this is likely consistent with the itself. There is a normal hemoglobin and platelet count. Potassium somewhat low at 3.3, no kidney failure. No concerning liver enzyme elevation. Covid testing returned negative. Chest film did not show mediastinal widening, pneumonia or free air. On exam, the patient did have irritation to her throat and soft palate consistent with her persistent vomiting. The patient received IV saline, she was given IV potassium, IV Zofran, IV Reglan and IV Benadryl. She received IV Pepcid and IV Tylenol. I spoke with GI about her complaints. Hospitalization/observation was recommended. The patient will likely have an endoscopy performed tomorrow to evaluate the esophagus further. I spoke to the patient about her findings, I spoke with case management. The on-call private tutors and teachers was consulted for the hospitalization. Past Med/Surg History Medical History Acid reflux NO MEDS Anxiety Endometriosis Surgical History H/O dilation and curettage H/O laparoscopy [place] teeth extracted Family History Father Diabetes Grandmother (Maternal) Cervix cancer Grandmother Uterus cancer Sister Thyroid cancer Post-operative nausea and vomiting Mother Post-operative nausea and vomiting Other Breast cancer Endometriosis History of ovarian cyst Hypertension Migraine Ovarian cancer Social History Smoking Status: Never smoker Hx Alcohol Use: No Hx Substance Use: No Preferred Language: Divehi Communication Ability: Effective Felting Machine Operator Required: No Beliefs That Will Affect Care: None Current Living Situation: Spouse Feels Safe at Home: Yes Assistive Devices: None Allergies Allergies Allergy/AdvReac Type Severity Reaction Status Date / Time latex Allergy Unknown HIVES, Verified 06/02/20 22:39 THROAT SWELLS, SOB Penicillins Allergy Unknown HIVES, Verified 06/02/20 22:39 THROAT SWELLS Home Meds Home Medications Medication Instructions Recorded Confirmed promethazine 25 mg OR Q6H PRN 05/04/20 06/02/20 ondansetron 4 mg PO Q4H PRN 05/09/20 06/02/20 Results & Data (ED) Vital Signs Vital Signs - 24 hr 06/02/20 19:17 06/02/20 21:25 06/02/20 22:20 Temperature 36.7 C Temperature Source Temporal Artery Scan Pulse Rate 104 H Pulse Rate [Right] 99 H 98 H Pulse Rhythm [Right] Regular Regular Pulse Strength [Right] Normal Respiratory Rate 18 18 16 Respiratory Effort / Characteristics Non-Labored Spontaneous Non-Labored Spontaneous Respiratory Depth Normal Normal Blood Pressure 138/82 Blood Pressure [Right Arm] 149/85 H 146/86 H Blood Pressure Mean 100 Blood Pressure Mean [Right Arm] 106 106 Pulse Oximetry 100 99 100 Oxygen Delivery Method Room Air Room Air Room Air Sepsis Recent Fever Within 48 Hours No Sepsis New/Unexplained Change in Mental Status No Sepsis Action Taken by Nursing No Action Required Home Medications Current Medication List: was personally reviewed by me Laboratory Data Attestation: I reviewed the patient's lab results. Result diagrams: 06/02/20 21:21 06/02/20 21:21 Lab Results 06/02/20 06/02/20 06/02/20 Range/Units 21:21 21:21 22:30 WBC 10.99 H (4.8-10.8) K/uL RBC 4.85 (4.2-5.4) M/uL Hgb 14.0 (12.0-16.0) g/dL Hct 40.3 (37-47) % MCV 83.1 (80-100) fL MCH 28.9 (25-34) pg MCHC 34.7 (32-36) g/dL RDW Std Deviation 37.5 (36.4-46.3) fL RDW Coeff of Fallon 12.4 (11.5-14.5) % Plt Count 252 (130-400) K/uL MPV 10.5 H (7.4-10.4) fL Sodium 136 (136-145) mmol/L Potassium 3.3 L (3.5-5.1) mmol/L Chloride 102 (98-107) mmol/L Carbon Dioxide 22 (21-32) mmol/L Anion Gap 11.0 (3-11) BUN 7 (7-18) mg/dl Creatinine 0.80 (0.6-1.2) mg/dl Est Cr Clr Drug Dosing 114.7 ml/min Est GFR ( Amer) 117.9 Est GFR (Non-Af Amer) 101.8 BUN/Creatinine Ratio 8.1 L (10-20) Glucose 85 (70-99) mg/dl Calcium 9.6 (8.5-10.1) mg/dl Magnesium 1.9 (1.8-2.4) mg/dl Total Bilirubin 0.9 (0.2-1) mg/dl AST 13 L (15-37) U/L ALT 32 (12-78) U/L Alkaline Phosphatase 74 (45-117) U/L Total Protein 7.4 (6.4-8.2) gm/dl Albumin 3.5 (3.4-5.0) gm/dl Globulin 3.9 (2.5-4.0) gm/dl Albumin/Globulin Ratio 0.9 (0.9-2) COVID-19 Eval [facility] SARS-CoV-2, RNA, NAAT (NEGATIVE) 06/02/20 Range/Units 22:30 WBC (4.8-10.8) K/uL RBC (4.2-5.4) M/uL Hgb (12.0-16.0) g/dL Hct (37-47) % MCV (80-100) fL MCH (25-34) pg MCHC (32-36) g/dL RDW Std Deviation (36.4-46.3) fL RDW Coeff of Fallon (11.5-14.5) % Plt Count (130-400) K/uL MPV (7.4-10.4) fL Sodium (136-145) mmol/L Potassium (3.5-5.1) mmol/L Chloride (98-107) mmol/L Carbon Dioxide (21-32) mmol/L Anion Gap (3-11) BUN (7-18) mg/dl Creatinine (0.6-1.2) mg/dl Est Cr Clr Drug Dosing ml/min Est GFR ( Amer) Est GFR (Non-Af Amer) BUN/Creatinine Ratio (10-20) Glucose (70-99) mg/dl Calcium (8.5-10.1) mg/dl Magnesium (1.8-2.4) mg/dl Total Bilirubin (0.2-1) mg/dl AST (15-37) U/L ALT (12-78) U/L Alkaline Phosphatase (45-117) U/L Total Protein (6.4-8.2) gm/dl Albumin (3.4-5.0) gm/dl Globulin (2.5-4.0) gm/dl Albumin/Globulin Ratio (0.9-2) COVID-19 Eval Order SARS-CoV-2, RNA, NAAT NEGATIVE (NEGATIVE) Administered Medications Lactated Ringer's (Lr) 1,000 mls @ 125 mls/hr IV .Q8H ELY Stop: 07/03/20 00:00 Last Admin: 06/03/20 00:55 Dose: 125 mls/hr Documented by: [id number] Discontinued Medications Diphenhydramine HCl (Diphenhydramine 50 Mg/Ml Vial) 25 mg IV NOW STA Stop: 06/02/20 21:27 Last Admin: 06/02/20 21:36 Dose: 25 mg Documented by: [id number] Famotidine (Famotidine 20mg/5ml Iv Push) 20 mg IV ONE STA Stop: 06/02/20 21:27 Last Admin: 06/02/20 21:37 Dose: 20 mg Documented by: [id number] Sodium Chloride (Nss 1000ml) 1,000 mls @ 999 mls/hr IV .Q1H1M ONE Stop: 06/02/20 22:26 Last Infusion: 06/02/20 23:01 Dose: 0 mls/hr Documented by: [id number] Admin: 06/02/20 21:36 Dose: 999 mls/hr Documented by: [id number] Potassium Chloride (K Avel / Wtr) 10 meq in 100 mls @ 100 mls/hr IV ONE ONE Stop: 06/02/20 22:59 Last Infusion: 06/02/20 23:32 Dose: 0 mls/hr Documented by: [id number] Admin: 06/02/20 22:15 Dose: 100 mls/hr Documented by: [id number] Metoclopramide HCl (Metoclopramide Hcl Inj 5 Mg/Ml 2 Ml Vial) 10 mg IV NOW STA Stop: 06/02/20 21:27 Last Admin: 06/02/20 21:37 Dose: 10 mg Documented by: [id number] Imaging Data Radiologist's Impression: XR chest 1V portable HISTORY: 25 years-old Female vomiting acute vomiting COMPARISON: Chest radiograph 05/04/2020 TECHNIQUE: Portable AP view of the chest FINDINGS: Cardiomediastinal and hilar silhouettes are within normal limits. No pneumothorax, pleural effusion, airspace consolidation or overt pulmonary edema. Bones of the chest appear grossly intact. IMPRESSION: No acute process. Discharge Plan Visit Data Chief Complaint: Vomiting Stated Complaint: DIFFICULTY SWALLOWING, VOMITING ED Provider: Ilya Castillo Discharge Problem: Vomiting, , Hematemesis, Hypokalemia Patient Disposition: Admitted As Inpatient Condition: Fair Discharge Instructions Interventions: ED Discharge Assessment Last Done: 06/02/20 23:08 Discharge Problem: Vomiting Qualifiers: Vomiting type: unspecified Vomiting Intractability: intractable Nausea presence: with nausea Qualified Code(s): R11.2 - Nausea with vomiting, unspecified Qualifiers: Weeks of gestation: 11 weeks Qualified Code(s): Z3A.11 - 11 weeks gestation of Hematemesis Qualifiers: Nausea presence: with nausea Qualified Code(s): K92.0 - Hematemesis
[2020-06-02 21:50] LABS: Hematocrit (blood only) 40.3 % (37-47); Mean Corpuscular Hemoglobin 28.9 pg (25-34); Mean Corpuscular Hgb Conc 34.7 g/dL (32-36); Mean Corpuscular Volume 83.1 fL (80-100); Mean Platelet Volume 10.5 fL (7.4-10.4); Platelet Count 252 K/uL (130-400); RDW Coefficient of Variation 12.4 % (11.5-14.5); RDW Standard Deviation 37.5 fL (36.4-46.3); Red Blood Count 4.85 M/uL (4.2-5.4); White Blood Count 10.99 K/uL (4.8-10.8)
[2020-06-02 21:58] LABS: Albumin Level 3.5 gm/dl (3.4-5.0); BUN Creatinine Ratio 8.1 (10-20); Calcium 9.6 mg/dl (8.5-10.1); Creatinine Clr Calc Pharmacy 114.7 ml/min; Est GFR (African American) 117.9; Est GFR (Non-African American) 101.8; Magnesium 1.9 mg/dl (1.8-2.4); Potassium 3.3 mmol/L (3.5-5.1)
[2020-06-02] MEDS ORDERED: POTASSIUM CHLORIDE / WTR 10 MEQ/100 ML PLCT IV ONE (22:00)
[2020-06-02 22:01] LABS: Albumin Globulin Ratio 0.9 (0.9-2); Bilirubin,Total 0.9 mg/dl (0.2-1); Globulin 3.9 gm/dl (2.5-4.0); Total Protein 7.4 gm/dl (6.4-8.2)
--- NOTE | 2020-06-02 22:27 | XRay Report ---
XR chest 1V portable HISTORY: 25 years-old Female vomiting acute vomiting COMPARISON: Chest radiograph 05/04/2020 TECHNIQUE: Portable AP view of the chest FINDINGS: Cardiomediastinal and hilar silhouettes are within normal limits. No pneumothorax, pleural effusion, airspace consolidation or overt pulmonary edema. Bones of the chest appear grossly intact. IMPRESSION: No acute process. ACT 112: Negative or not required by law. The above report was generated using voice recognition software. It may contain grammatical, syntax o r spelling errors. Electronically signed by: Isaiah Osorio M.D. 06/02/2020 10:25 PM
[2020-06-03] MEDS ORDERED: ACETAMINOPHEN 1,000 MG/100 ML VIAL IV PRN
[2020-06-03] MEDS: LACTATED RINGER'S 1,000 ML IV SCH ×2 (00:55→09:01)
[2020-06-03] MEDS: ONDANSETRON INJ 2 MG/ML 2 ML VIAL IV PRN ×2 (07:02→12:39)
--- NOTE | 2020-06-03 12:18 | Gastrointestinal Consultation ---
Date of Consultation June 03, 2020 Assessment & Plan (1) Hyperemesis gravidarum: (2) Hematemesis: (3) Odynophagia: suspect a farhana-melchor tear from persistent wretching and vomiting; no evidence of BoorHaaves syndrome/perforation on CXR. VSS. Recs: --start carafate 5mL QID for 4-8 weeks --continue anti-emetics for hyperemesis gravidum -- if persistent hematemesis/worsening anemia, can consider EGD, but will defer at this time given stable labs and high risk as she is in first trimester of Thank you for allowing me to participate in the care of this patient. History of Present Illness Attending Physician: Chapo Lyman MD 25 yo female who is 11 weeks here with severe hyperemesis gravidum. GI consulted for hematemesis. She notes for the last 5 weeks she has been vomiting and retching up to 20 times per day, unable to tolerate any PO intake besides ice chips. [facility] as a result multiple times. She notes vomiting streaks of blood recently, never had this issue before. Denies any hx PUD, family hx cancer nor PUD, prior EGD nor colonoscopy. CXR on admission was unremarkable. She notes she feels a lump in her throat now and she is having odynophagia. Denies any abdominal pains. labs reviewed, VSS, mild hypokalemia, hgb wnl. Allergies Allergy/AdvReac Type Severity Reaction Status Date / Time latex Allergy Unknown HIVES, Verified 06/02/20 22:39 THROAT SWELLS, SOB Penicillins Allergy Unknown HIVES, Verified 06/02/20 22:39 THROAT SWELLS Home Medications Medication Instructions Recorded Confirmed Type promethazine 25 mg MS Q6H PRN 05/04/20 06/02/20 History ondansetron 4 mg PO Q4H PRN 05/09/20 06/02/20 History Patient History Medical History (Updated 06/03/20 @ 12:22 by Kwaku Samson MD) Acid reflux NO MEDS Anxiety Endometriosis Surgical History H/O dilation and curettage H/O laparoscopy [place] teeth extracted Family History Father Diabetes Grandmother (Maternal) Cervix cancer Grandmother Uterus cancer Sister Thyroid cancer Post-operative nausea and vomiting Mother Post-operative nausea and vomiting Other Breast cancer Endometriosis History of ovarian cyst Hypertension Migraine Ovarian cancer Social History Smoking Status: Never smoker Hx Alcohol Use: No Hx Substance Use: No Preferred Language: Australian Communication Ability: Effective Nail Mill Worker Required: No Beliefs That Will Affect Care: None Current Living Situation: Spouse Feels Safe at Home: Yes Assistive Devices: None Review of Systems Constitutional: no fever, no chills and no weight loss Eyes: as per Subjective / HPI Ear, Nose, Mouth, Throat: as per Subjective / HPI Respiratory: no dyspnea and no dyspnea on exertion Cardiovascular: no chest pain and no palpitations Gastrointestinal: as per Subjective / HPI Musculoskeletal: no joint pain and no swelling Integumentary: no rash and no lesions Neurologic: no numbness and no paresthesia Psychiatric: no depression and no anxiety Endocrine: no fatigue Hematologic / Lymphatic: no easy bleeding and no easy bruising Physical Exam Constitutional: WD/WN, vitals as above Eyes: EOM intact bilaterally Neck: normal visual inspection Respiratory: normal respiratory effort, lungs clear to auscultation Cardiovascular: RRR, no murmur, no edema Gastrointestinal (Abdomen): Inspection/Auscultation: abdomen normal to inspection; abdomen not distended Percussion/Palpation: abdomen soft; abdomen nontender and no hepatosplenomegaly Musculoskeletal: Extremities: no cyanosis Gait: normal gait Skin: no rashes, warm and dry Neurologic: moves all extremities Psychiatric: A+Ox3, euthymic affect Results & Data ([facility]) Vital Signs (Past 12 Hours) Vital Signs Temp Pulse Resp BP Pulse Ox 06/03/20 08:05 36.2 C L 75 20 113/60 06/03/20 00:15 36.7 C 98 H 16 112/72 99 PG Care Time/CCT Total # of Minutes Spent Total Time Spent with Patient: Total time spent is greater than 50% in coordination of care (as documented) at patient's floor/unit and/or counseling patient: Coding Level of Care Code 86568 Office/OBS Consult Lvl 4 Diagnoses Hyperemesis gravidarum O21.0 Hematemesis K92.0 Nausea presence: with nausea Odynophagia R13.10 (1) Hematemesis Nausea presence: with nausea Qualified Code(s): K92.0 - Hematemesis
--- NOTE | 2020-06-03 12:48 | Obstetrical Progress Note ---
Date of Service June 03, 2020 Assessment & Plan Admission and Anticipated Discharge Date Admission Date: June 02, 2020 Subjective No upper GI bleeding since admission doing well GI consult noted and appreciated will d/c home Review of Systems Review of Systems: All systems reviewed & are unremarkable except as noted in HPI & below Physical Exam Constitutional: WD/WN, vitals as above comfortable Results & Data ([facility]) Vital Signs (Past 12 Hours) Vital Signs Temp Pulse Resp BP 06/03/20 08:05 36.2 C L 75 20 113/60
[2020-06-03] MEDS ORDERED: SUCRALFATE 1 GM/10 ML UDC PO SCH (13:00)
== END 2020-06-03 13:06 | disposition home or self-care (01) ==
LOC: 4S2 19:07 → ED 19:07 → 4S2 23:08

== ENCOUNTER 2020-12-25 18:16 | Inpatient (IN) ==
[2020-12-25] MEDS ORDERED: VANCOMYCIN HCL 1,000 MG in SODIUM CHLORIDE 0.9% 250 ML IV PRN (18:32)
[2020-12-25] MEDS ORDERED: OXYTOCIN 30 UNITS/500 ML BAG IV PRN ×2 (18:32→23:38)
[2020-12-25] MEDS ORDERED: VANCOMYCIN HCL 1,000 MG in SODIUM CHLORIDE 0.9% 250 ML IV ONE (18:45)
[2020-12-25 18:57] LABS: Hemoglobin 12.7 g/dL (12.0-16.0); Mean Corpuscular Hemoglobin 28.7 pg (25-34); Mean Corpuscular Hgb Conc 33.4 g/dL (32-36); Mean Platelet Volume 11.1 fL (7.4-10.4); Platelet Count 263 K/uL (130-400); RDW Coefficient of Variation 14.6 % (11.5-14.5); Red Blood Count 4.42 M/uL (4.2-5.4); White Blood Count 14.34 K/uL (4.8-10.8)
[2020-12-25] MEDS: LACTATED RINGER'S 1,000 ML IV PRN ×2 (19:04→20:06)
[2020-12-25] MEDS ORDERED: LABETALOL HCL 100 MG TAB PO ONE (19:12)
--- NOTE | 2020-12-25 19:12 | History & Physical Report ---
Date of Service December 25, 2020 Assessment & Plan (1) Uterine contractions at greater than 20 weeks of gestation: Plan: 25-year-old -0-1-1 at 40 weeks and 3 days of gestation presenting with contractions and cervical change, being admitted for labor, Elevated blood pressures with no symptoms, heart rate reassuring, GBS positive, Plan to admit, monitor, labs, IV vancomycin for GBS, antihypertensives if needed for elevated blood pressures and augment with Pitocin if no cervical change. All questions were answered. (2) Positive GBS test: (3) Hyperemesis gravidarum: History of Present Illness Primary Care Provider: Xu Muro MD Patient is a 25-year-old -0-1-1 at 40 weeks and 3 days of gestation who started to feel contractions at around 4 AM. They have been coming every 10 minutes but very painful and she was unable to sleep. Patient denies leakage of fluid or vaginal bleeding. She denies headache, change in her vision, nausea vomiting, epigastric or right upper quadrant pain. She reports good movements. Her cervix was 1 cm dilated on December 21 in the office. Now changed to 4 cm dilation, 50% effaced with a bulging bag. She is being admitted for labor. Her has been complicated by, 1)hyperemesis gravidarum, she was on IV Zofran until 26 weeks of since then, 2) GBS positive, allergic to penicillin, Allergies Allergy/AdvReac Type Severity Reaction Status Date / Time Penicillins Allergy Unknown Hives Verified 11/14/20 01:24 Home Medications Medication Instructions Recorded Confirmed Type promethazine 25 mg rectal 25 mg ID Q6H PRN 05/04/20 06/06/20 History suppository ondansetron 4 mg disintegrating 4 mg PO Q4H PRN 05/09/20 06/06/20 History tablet sucralfate 100 mg/mL oral 10 ml PO Q4H #200 ml 06/03/20 06/06/20 Rx suspension prochlorperazine [Compazine] ID PRN 06/06/20 06/06/20 History nifedipine 10 mg capsule 10 mg PO Q4 #42 cap 11/09/20 11/14/20 Rx nitrofurantoin 100 mg PO BID #14 cap 11/09/20 11/14/20 Rx monohydrate/macrocrystals 100 mg capsule 1 tab PO DAILY 11/14/20 11/14/20 History nifedipine 30 mg tablet,extended 30 mg PO BID #34 tab 11/14/20 Rx release 24 hr (Procardia XL) Patient History Medical History (Updated 12/25/20 @ 19:10 by Grace Jesus MD) Acid reflux NO MEDS Anxiety Endometriosis Surgical History H/O dilation and curettage H/O laparoscopy [place] teeth extracted Family History Father Diabetes Grandmother (Maternal) Cervix cancer Grandmother Uterus cancer Sister Thyroid cancer Post-operative nausea and vomiting Mother Post-operative nausea and vomiting Other Breast cancer Endometriosis History of ovarian cyst Hypertension Migraine Ovarian cancer Social History Smoking Status: Never smoker Second Hand Exposure: No; Hx Alcohol Use: No Hx Substance Use: No Preferred Language: Chinese Communication Ability: Effective Visual Impairment: No Limitations First Beater Required: No Beliefs That Will Affect Care: None marital status: Current Living Situation: Spouse Feels Safe at Home: Yes Assistive Devices: None OB History FT in 2016, no complication SUBMERSIBLE PILOT History She denies any history of STDs, chlamydia, gonorrhea, herpes. Review of Systems as per Subjective / HPI Physical Exam Constitutional: well developed and well nourished Genitourinary: normal external appearance OB Exam Abdomen: + vertex Manual OB Exam: + cervical dilation 4 cm, + cervical effacement 50% and + station -2 OB Exam Monitor Tracing: + external uterine monitor used and + category I Results & Data ([facility]) Vital Signs (Past 12 Hours) Vital Signs Temp Pulse Resp BP 12/25/20 18:56 83 146/77 H 12/25/20 18:41 103 H 177/82 H 12/25/20 18:27 86 163/91 H 12/25/20 18:24 37.2 C 100 H 20 171/85 H Laboratory Results Lab Results 12/25/20 Range/Units 18:48 WBC 14.34 H (4.8-10.8) K/uL RBC 4.42 (4.2-5.4) M/uL Hgb 12.7 (12.0-16.0) g/dL Hct 38.0 (37-47) % MCV 86.0 (80-100) fL MCH 28.7 (25-34) pg MCHC 33.4 (32-36) g/dL RDW Std Deviation 46.0 (36.4-46.3) fL RDW Coeff of [place] 14.6 H (11.5-14.5) % Plt Count 263 (130-400) K/uL MPV 11.1 H (7.4-10.4) fL
[2020-12-25 19:28] LABS: Appearance Urine Cloudy (Clear); Bacteria Urine Automated 3+ (Negative); Bilirubin Urine Negative (Negative); Blood Urine Negative (Negative); Color Urine Yellow; Epithelial Cell Urine Auto >30 /lpf (0-5); Glucose Urine UA Negative (Negative); Ketones Urine Trace (Negative); Leukocyte Esterase Urine 1+ (Negative); Nitrite Urine Negative (Negative); Protein Urine 1+ (Negative); RBC Urine Automated 0-4 /hpf (0-4); Specific Gravity Urine 1.033 (1.000-1.030); Urobilinogen Urine Negative (Negative); WBC Urine Automated >30 /hpf (0-5)
[2020-12-25 19:29] LABS: Albumin Level 2.7 gm/dl (3.4-5.0); BUN Creatinine Ratio 19.9 (10-20); Calcium 9.3 mg/dl (8.5-10.1); Creatinine Clr Calc Pharmacy 142.3 ml/min; Est GFR (African American) 136.2 ml/min; Est GFR (Non-African American) 117.6 ml/min; Potassium 3.9 mmol/L (3.5-5.1)
[2020-12-25 19:32] LABS: Albumin Globulin Ratio 0.6 (0.9-2); Bilirubin,Total 0.3 mg/dl (0.2-1); Globulin 4.3 gm/dl (2.5-4.0)
[2020-12-25] MEDS ORDERED: BUPIVACAINE 0.25% 30 ML VIAL ONE (19:48)
[2020-12-25] MEDS ORDERED: ePHEDrine sulfate 50 MG/ML AMP ONE (19:48)
[2020-12-25] MEDS ORDERED: SODIUM CHLORIDE 0.9% INJ 10 ML VIAL ONE (19:48)
[2020-12-25] MEDS ORDERED: fentaNYL citrate 100 MCG/2 ML VIAL ONE (19:48)
[2020-12-25] MEDS ORDERED: fentaNYL 2MCG/ML ROPIVACAINE 1.25MG/ML 100 ML BAG EPI ONE (19:49)
--- NOTE | 2020-12-25 20:11 | Anesthesiology Consultation ---
Date of Service December 25, 2020 Assessment & Plan ASA ASA3 Proposed Anesthesia Anesthesia Type: Labor Epidural Risk / Benefits Reviewed With: PT / POA / Parent / Guardian, Accepts Plan and Informed Consent Obtained History Height/Weight Height: 5 ft 7 in Weight: 95.254 kg Allergies Allergy/AdvReac Type Severity Reaction Status Date / Time Penicillins Allergy Unknown Anaphylaxis Verified 12/25/20 19:28 Medications Home Medications Medication Instructions Recorded Confirmed Last Taken promethazine 25 mg rectal 25 mg NJ Q6H PRN 05/04/20 06/06/20 Unknown suppository ondansetron 4 mg disintegrating 4 mg PO Q4H PRN 05/09/20 06/06/20 Unknown tablet sucralfate 100 mg/mL oral 10 ml PO Q4H #200 ml 06/03/20 06/06/20 Unknown suspension prochlorperazine [Compazine] NJ PRN 06/06/20 06/06/20 Unknown nifedipine 10 mg capsule 10 mg PO Q4 #42 cap 11/09/20 11/14/20 11/13/20 22:00 nitrofurantoin 100 mg PO BID #14 cap 11/09/20 11/14/20 11/13/20 08:00 monohydrate/macrocrystals 100 mg capsule 1 tab PO DAILY 11/14/20 11/14/20 11/13/20 08:00 nifedipine 30 mg tablet,extended 30 mg PO BID #34 tab 11/14/20 Unknown release 24 hr (Procardia XL) Active Medications Generic Name Dose Route Start Last Admin Trade Name Freq PRN Reason Stop Dose Admin Lactated Ringer's 1,000 mls @ 150 mls/hr 12/25/20 18:32 12/25/20 19:04 Lr IV 12/27/20 18:31 999 mls/hr .Q6H40M PRN Administration L&D Protocol Protocol Past Medical History Medical History (Updated 12/25/20 @ 19:10 by Grace Jesus MD) Acid reflux NO MEDS Anxiety Endometriosis Exercise / Class Metabolic Activity II 4-5 Yardwork/Stairs/Walk up hill Past Family History Family History Father Diabetes Grandmother (Maternal) Cervix cancer Grandmother Uterus cancer Sister Thyroid cancer Post-operative nausea and vomiting Mother Post-operative nausea and vomiting Other Breast cancer Endometriosis History of ovarian cyst Hypertension Migraine Ovarian cancer Past Surgical History Surgical History H/O dilation and curettage H/O laparoscopy [place] teeth extracted Past Anesthesia History No Hx of Anesthesia Complications and No Family Hx of Anesthesia Complications History of PONV No Hx of PONV and No Hx of Motion Sickness Social History Smoking Status: Never smoker Do You Dip or Chew Tobacco: No Hx Alcohol Use: No Hx Substance Use: No substance use type: does not use Review of Systems denies fever/cough/ colds/ chest pain/ SOB/ TOO denies TOO Physical Exam Vital Signs Last Vital Signs Temp 37.2 C 12/25/20 19:12 Pulse 78 12/25/20 19:57 Resp 18 12/25/20 19:12 BP 130/72 12/25/20 19:57 ENMT Mouth: no TMJ abnormality and no dentition abnormality Thyromental Distance: > or= 3.5 Finger Breadths Mallampati Class: II Neck neck extension not limited Respiratory normal respiratory effort; no respiratory distress Auscultation: lungs clear to auscultation bilaterally Cardiovascular Rate/Rhythm: regular rate and regular rhythm Neurologic moves all extremities Psychiatric Orientation: alert and oriented x 3 Testing Laboratory Results 12/25/20 18:48 12/25/20 18:48 Urine Color Yellow 12/25/20 19:00 Urine Appearance Cloudy (Clear) A 12/25/20 19:00 Urine pH 6.0 (4.5-7.5) 12/25/20 19:00 Ur Specific [place] 1.033 (1.000-1.030) H 12/25/20 19:00 Urine Protein 1+ (Negative) H 12/25/20 19:00 Urine Glucose (UA) Negative (Negative) 12/25/20 19:00 Urine Ketones Trace (Negative) H 12/25/20 19:00 Urine Nitrite Negative (Negative) 12/25/20 19:00 Ur Leukocyte Esterase 1+ (Negative) H 12/25/20 19:00 Urine WBC (Auto) >30 /hpf (0-5) H 12/25/20 19:00 Urine RBC (Auto) 0-4 /hpf (0-4) 12/25/20 19:00 U Hyaline Cast (Auto) 10-30 /lpf (0-5) H 12/25/20 19:00 U Epithel Cells (Auto) >30 /lpf (0-5) H 12/25/20 19:00 Urine Bacteria (Auto) 3+ (Negative) H 12/25/20 19:00 Blood Type O Positive 12/25/20 18:48 Antibody Screen NEGATIVE 12/25/20 18:48
[2020-12-25] MEDS ORDERED: NALOXONE HCL 0.4 MG/1 ML VIAL/CARP IV PRN (20:19)
[2020-12-25] MEDS ORDERED: ePHEDrine sulfate 50 MG/ML AMP IV PRN (20:19)
[2020-12-25] MEDS ORDERED: diphenhydrAMINE 50 MG/ML VIAL IV PRN (20:19)
[2020-12-25] MEDS ORDERED: NALOXONE HCL 1 MG in SODIUM CHLORIDE 0.9% 1000ML 1,000 ML IV PRN (20:19)
[2020-12-25] MEDS ORDERED: NALBUPHINE HCL INJ 10 MG/ML AMP IV PRN (20:19)
[2020-12-25] MEDS ORDERED: ONDANSETRON INJ 2 MG/ML 2 ML VIAL IV PRN (20:19)
[2020-12-25] MEDS ORDERED: CALCIUM CARBONATE 500 MG CHEWABLE TAB PO PRN (20:59)
[2020-12-25] MEDS: ACETAMINOPHEN 325 MG TAB PO PRN (21:07)
[2020-12-25] MEDS ORDERED: VANCOMYCIN HCL 500 MG in SODIUM CHLORIDE 0.9% 250 ML IV STA (22:18)
[2020-12-25] MEDS ORDERED: VANCOMYCIN HCL 1,500 MG in SODIUM CHLORIDE 0.9% 500 ML IV PRN (22:19)
--- NOTE | 2020-12-25 22:19 | Obstetrical Progress Note ---
Date of Service December 25, 2020 Assessment & Plan Admission and Anticipated Discharge Date Admission Date: December 25, 2020 Subjective Patient is reevaluated. She is comfortable now, received epidural for pain. heart rate is reassuring, category 1. [place] contractions every 3 to 5 minutes Vaginal exam, cervix is 5 cm dilated, 70% effaced with bulging bag head at -2 station. She has received IV vancomycin for GBS positive. Continue to monitor closely. Results & Data ([facility]) Vital Signs (Past 12 Hours) Vital Signs Temp Pulse Resp BP Pulse Ox 12/25/20 22:15 91 H 84 L 12/25/20 22:12 87 88 L 12/25/20 22:09 84 88 L 12/25/20 22:07 70 129/73 98 12/25/20 22:02 69 96 12/25/20 21:57 76 99 12/25/20 21:52 73 126/72 97 12/25/20 21:47 74 95 12/25/20 21:42 80 94 12/25/20 21:37 84 129/75 98 12/25/20 21:32 71 96 12/25/20 21:30 18 12/25/20 21:27 76 92 12/25/20 21:22 76 125/76 94 12/25/20 21:17 78 95 12/25/20 21:12 79 92 12/25/20 21:08 75 128/76 12/25/20 21:07 83 93 12/25/20 21:05 18 12/25/20 21:02 79 90 12/25/20 21:00 18 12/25/20 20:57 82 90 12/25/20 20:55 18 12/25/20 20:52 91 H 92 12/25/20 20:50 81 18 132/75 12/25/20 20:48 82 146/75 H 12/25/20 20:47 87 92 12/25/20 20:46 94 H 140/76 12/25/20 20:45 18 12/25/20 20:44 82 138/76 12/25/20 20:42 91 H 142/83 H 94 12/25/20 20:40 84 18 141/83 H 12/25/20 20:38 83 144/93 H 12/25/20 20:37 83 95 12/25/20 20:36 92 H 150/96 H 12/25/20 20:35 18 12/25/20 20:34 94 H 148/72 H 12/25/20 20:33 95 H 92 12/25/20 20:32 88 95 12/25/20 20:27 98 H 98 12/25/20 20:10 85 135/80 12/25/20 19:57 78 130/72 12/25/20 19:41 83 135/62 12/25/20 19:25 77 144/83 H 12/25/20 19:12 37.2 C 80 18 150/89 H 12/25/20 19:11 80 150/89 H 12/25/20 18:56 83 146/77 H 12/25/20 18:41 103 H 177/82 H 12/25/20 18:27 86 163/91 H 12/25/20 18:24 37.2 C 100 H 20 171/85 H
[2020-12-26] MEDS: LACTATED RINGER'S 1,000 ML IV PRN (03:58)
[2020-12-26] MEDS: ACETAMINOPHEN 325 MG TAB PO PRN (04:05)
[2020-12-26] MEDS: fentaNYL 2MCG/ML ROPIVACAINE 1.25MG/ML 100 ML BAG EPI PRN ×2 (04:06→09:00)
[2020-12-26] MEDS ORDERED: BENZOCAINE 20% AER SPR 82.5 GM CAN EXT PRN (10:16)
[2020-12-26] MEDS ORDERED: ACETAMINOPHEN 325 MG TAB PO PRN (10:16)
[2020-12-26] MEDS ORDERED: DIPHTHERIA/TETANUS/PERTUSSIS 0.5 ML SYR/VIAL IM ONE (10:16)
[2020-12-26] MEDS ORDERED: bisacodyL 10 MG SUPP PR PRN (10:16)
[2020-12-26] MEDS ORDERED: HYDROCORTISONE ACETATE 25 MG SUPP PR PRN (10:16)
[2020-12-26] MEDS ORDERED: OXYTOCIN 30 UNITS/500 ML BAG IV PRN (10:16)
[2020-12-26] MEDS ORDERED: SUPERCREAM 0.870% 15 GM JAR EXT PRN (10:16)
[2020-12-26] MEDS: IBUPROFEN 600 MG TAB PO PRN ×2 (11:01→17:14)
--- NOTE | 2020-12-26 11:28 | Anesthesia Procedure Note ---
Date of Service December 26, 2020 Anesthesia Post Epidural Note Vital Signs Vital Signs: Temp Pulse Resp BP Pulse Ox 37.1 C 88 20 118/70 98 12/26/20 10:09 12/26/20 11:22 12/26/20 11:11 12/26/20 11:22 12/26/20 10:58 Pain Intensity Back: Pain Intensity: 2 Notes Mental Status: alert / awake / arousable and participated in evaluation Nausea / Vomiting: adequately controlled Pain: adequately controlled Airway Patency, RR, SpO2: stable & adequate BP & HR: stable & adequate Hydration State: stable & adequate Neuraxial Anesthesia: was administered and sensory block is resolving Anesthetic Complications: no major complications apparent and Pt Satisfied with anesthetic care Epidural: Removed without complications and With tip intact
--- NOTE | 2020-12-26 16:32 | Delivery Summary ---
DATE OF DELIVERY: DELIVERY NOTE: The patient delivered a live in left occiput anterior presentation. There was no nuchal cord. There was, however, a body cord. was placed on mother's abdomen. Delayed c ord clamping was performed after 1 minute. Cord blood was obtained. The 's weight and Apgars are in the pediatric record. Placenta was spontaneously delivered. Inspection of the placenta shows a normal grossly looking placenta. Inspection of the peritoneum shows a first-degree laceration, w hich was repaired with 2-0 Vicryl. There was good hemostasis post-repair. Rectal exam post-repair s hows good sphincter tone. No sutures are palpated in the rectum. Estimated blood loss is 550 mL. Baby and mother are stable in recovery. All instruments were removed from the vagina and accounted for x2 including sponges, needles, and retractors. Job ID: [id number]
[2020-12-26] MEDS: DOCUSATE SODIUM 100 MG CAP PO SCH (20:13)
[2020-12-26 23:55] VITALS: O2SAT 97
[2020-12-27] MEDS: IBUPROFEN 600 MG TAB PO PRN (06:16)
[2020-12-27 06:21] LABS: Hematocrit (blood only) 31.7 % (37-47); Hemoglobin 10.3 g/dL (12.0-16.0); Mean Corpuscular Hemoglobin 27.8 pg (25-34); Mean Corpuscular Hgb Conc 32.5 g/dL (32-36); Mean Corpuscular Volume 85.4 fL (80-100); Mean Platelet Volume 10.8 fL (7.4-10.4); Platelet Count 186 K/uL (130-400); RDW Coefficient of Variation 14.9 % (11.5-14.5); RDW Standard Deviation 46.2 fL (36.4-46.3); Red Blood Count 3.71 M/uL (4.2-5.4); White Blood Count 13.28 K/uL (4.8-10.8)
[2020-12-27] MEDS: DOCUSATE SODIUM 100 MG CAP PO SCH (07:45)
[2020-12-27] MEDS ORDERED: PRENATAL VITAMIN 1 TAB PO SCH (08:00)
[2020-12-27 09:30] VITALS: BP 123/79; PULSE 80; TEMP 98.6
[2020-12-27] MEDS ORDERED: bisacodyL 5 MG TABEC PO SCH (20:00)
== END 2020-12-27 14:35 | disposition home or self-care (01) | DRG 807 ==
LOC: OPB 18:16 → 4S1 18:17 → 4S2 12-26 13:30

== ENCOUNTER 2025-02-05 16:04 | Observation (INO) ==
--- NOTE | 2025-02-05 16:30 | Emergency Department Note ---
History of Present Illness General Chief complaint: Allergic Reaction Stated complaint: RECTION TO MEDICATION/LOCAL ANESTHESIA Time Seen by Provider: 02/05/25 16:16 History of Present Illness Maximum Pain Intensity: 5 This is a 30-year-old female that presents to the emergency department via private vehicle with complaints of "reaction to medication/local anesthesia". The patient notes that she had dental infection prompting extraction of 2 teeth this past . This was performed at [facility]. She notes that she did require multiple local anesthetic injections to help with the extraction. The patient believes she was injected about 10 times. Patient notes that during the extraction she felt some palpitations and had to be placed in a supine position. No syncope. However since the extraction she now notes palpitations feeling that the heart is "pounding" and also intermittent facial numbness near the mouth area, and also stool incontinence. She notes the stool is watery like in nature. She also notes generalized lateral abdominal pain and back pain. Patient also notes she has to strain to urinate. The patient denies any fever. She denies any pain at the extraction sites. No current antibiotic use. No genital numbness. No leg weakness. She also notes some chest pain. Home Medications Medication Instructions Recorded Confirmed Type oxycodone 5 mg tablet 5 mg PO UD PRN Pain 02/04/25 02/05/25 History Allergies Allergy/AdvReac Type Severity Reaction Status Date / Time Penicillins Allergy Severe Anaphylaxis Verified 09/09/24 13:29 Past Med/Surg History Problem List (Updated 02/05/25 @ 21:42 by Pavan Valdez PA-C) Back pain (Acute) Facial numbness (Acute) Fecal incontinence (Acute) Palpitations (Acute) Abdominal pain (Acute) History of recent dental procedure (Acute) Diarrhea Fecal incontinence H/O tooth extraction (Acute) Post-op pain (Acute) Dehydration (Acute) Palpitation (Acute) Post-operative state Abdominal pain (Acute) Dehydration (Acute) Hemorrhagic ovarian cyst (Acute) Menstrual cramps (Acute) Pelvic pain (Acute) (Acute) Pyelonephritis (Acute) Urinary tract infection (Acute) Vomiting during (Acute) No acute medical problems Abnormal uterine bleeding (AUB) Endometriosis Encounter for pre-operative examination Vomiting (Acute) (Acute) Hematemesis (Acute) Hypokalemia (Acute) Odynophagia uterine contractions in third trimester, antepartum Medical History Lumbar pain History of palpitations resolved Acid reflux no meds, controlled per pt Anxiety No meds Endometriosis reason for upcoming procedure Surgical History H/O colposcopy with cervical biopsy benign H/O laparoscopy [place] teeth extracted H/O dilation and curettage Family History Father Diabetes Grandmother (Maternal) Cervix cancer Grandmother Uterus cancer Sister Thyroid cancer Post-operative nausea and vomiting Mother Post-operative nausea and vomiting Other Breast cancer Endometriosis History of ovarian cyst Hypertension Migraine Ovarian cancer Social History Smoking Status: Never smoker Second Hand Exposure: No; Do You Dip or Chew Tobacco: No; Hx Alcohol Use: No Hx Substance Use: No Preferred Language: Gabonese Communication Ability: Effective Visual Impairment: No Limitations Hypo Dipper Required: No Beliefs That Will Affect Care: None marital status: Current Living Situation: Spouse and Family Current Living Situation Comment: Lives with and child Feels Safe at Home: Yes Assistive Devices: None Review of Systems A total of 10 systems reviewed and were otherwise negative Physical Exam Vital Signs Vital Signs - 24 hr 02/05/25 16:08 02/05/25 16:38 02/05/25 16:38 Temperature 36.6 C Temperature Source Temporal Artery Scan Pulse Rate 83 Pulse Rate [Apical] Respiratory Rate 18 Respiratory Effort / Characteristics Non-Labored Spontaneous Non-Labored Spontaneous Respiratory Depth Normal Respiratory Pattern Regular Blood Pressure 155/99 H Blood Pressure [Right Arm] Blood Pressure Mean 117 Blood Pressure Mean [Right Arm] Blood Pressure Position [Right Arm] Pulse Oximetry 99 100 Oxygen Delivery Method Room Air Room Air Sepsis Recent Fever Within 48 Hours No Sepsis New/Unexplained Change in Mental Status No Sepsis Action Taken by Nursing No Action Required 02/05/25 18:29 02/05/25 18:30 02/05/25 18:44 Temperature Temperature Source Pulse Rate 75 Pulse Rate [Apical] 92 H Respiratory Rate 18 Respiratory Effort / Characteristics Non-Labored Spontaneous Respiratory Depth Normal Respiratory Pattern Regular Blood Pressure Blood Pressure [Right Arm] 136/69 Blood Pressure Mean Blood Pressure Mean [Right Arm] 91 Blood Pressure Position [Right Arm] Pulse Oximetry 93 94 Oxygen Delivery Method Room Air Room Air Sepsis Recent Fever Within 48 Hours Sepsis New/Unexplained Change in Mental Status Sepsis Action Taken by Nursing 02/05/25 20:00 Temperature Temperature Source Pulse Rate Pulse Rate [Apical] 82 Respiratory Rate 20 Respiratory Effort / Characteristics Non-Labored Spontaneous Respiratory Depth Normal Respiratory Pattern Regular Blood Pressure Blood Pressure [Right Arm] 155/95 H Blood Pressure Mean Blood Pressure Mean [Right Arm] 115 Blood Pressure Position [Right Arm] Semi-fowlers Pulse Oximetry 100 Oxygen Delivery Method Room Air Sepsis Recent Fever Within 48 Hours Sepsis New/Unexplained Change in Mental Status Sepsis Action Taken by Nursing VITAL SIGNS - Vital signs and nursing notes were reviewed. Stable and afebrile. GENERAL -30-year-old female appearing her stated age who is in no acute distress. Communicates well with provider and answers questions appropriately. SKIN - Without rashes. No meningeal or petechial rash. HEAD - NC/AT. EYES - PERRL with EOMI bilaterally. Sclera anicteric. EARS - No deformities of external structures noted on gross examination bilaterally. External auditory canals without discharge or otorrhea. Tympanic membranes pearly fofana without retraction or bulging. No fluid or purulent material visualized behind the TM. Handle of malleus, umbo, cone of light, pars tensa/flaccid all easily visualized. NOSE - Midline and without cyanosis. No epistaxis or purulent drainage noted. Septum midline without deviation or septal hematoma noted. MOUTH/OROPHARYNX - Without perioral cyanosis. Buccal mucosa pink and moist and without leukoplakia. Tongue midline with equal elevation of palate bilaterally. No tonsillar hypertrophy, erythema, or exudates noted. Good dentition noted. Left posterior inferior and superior dental extraction sites are healing without sign of secondary infection. There is no purulence. No crepitus. No bleeding. NECK - Neck with FROM. Supple to palpation. No lymphadenopathy noted. No nuchal rigidity. LUNGS - Chest wall symmetric without accessory muscle use, intercostals retractions, or central cyanosis. Normal vesicular breath sounds CTA B/L. No wheezes, rales, or rhonchi appreciated. CARDIAC - RRR ABDOMEN - Abdominal contour normal without pulsations or visible masses. BS normoactive all four quadrants. No tenderness, palpable masses, hepatosplenomegaly, or ascites noted. EXTREMITIES - No clubbing or peripheral cyanosis. +5/5 strength noted in UE/LE bilaterally. NEUROLOGIC - Cranial nerves II through XII grossly intact. PSYCH -alert, oriented and pleasant on exam Course Administered Medications Lactated Ringer's (Lr) 1,000 mls @ 80 mls/hr IV .[id number] ELY Stop: 02/06/25 08:59 Last Admin: 02/05/25 21:00 Dose: 80 mls/hr Documented By: ARAW Discontinued Medications Sodium Chloride (Nss) 1,000 mls @ 999 mls/hr IV .[id number] ONE Stop: 02/05/25 18:51 Last Infusion: 02/05/25 19:43 Dose: Infused Documented By: Admin: 02/05/25 17:56 Dose: 999 mls/hr Documented By: ARMINDA Medical Decision Making Laboratory Data 02/05/25 16:35 02/05/25 16:35 Lab Results 02/05/25 02/05/25 02/05/25 Range/Units 16:35 18:10 20:45 WBC 10.37 (4.8-10.8) K/ul RBC 4.68 (4.20-5.40) M/uL Hgb 13.4 (12.0-16.0) g/dl Hct 39.0 (37.0-47.0) % MCV 83.3 (80.0-100.0) fL MCH 28.6 (25.0-34.0) pg MCHC 34.4 (32.0-36.0) g/dL RDW Std Deviation 37.3 (36.4-46.3) fL RDW Coeff of [place] 12.3 (11.5-14.5) % Plt Count 262 (130-400) K/uL MPV 10.3 (9.4-12.4) fL Immature Gran % (Auto) 0.3 % Neut % (Auto) 64.2 % Lymph % (Auto) 24.7 % [place] % (Auto) 8.3 % Eos % (Auto) 1.7 % Baso % (Auto) 0.8 % Neut # (Auto) 6.66 H (1.40-6.50) K/uL Lymph # (Auto) 2.56 (1.20-3.40) K/uL Titus # (Auto) 0.86 H (0.11-0.59) K/uL Eos # (Auto) 0.18 (0.00-0.50) K/uL Baso # (Auto) 0.08 (0.00-0.20) K/uL Immature Gran # (Auto) 0.03 (0.01-0.20) K/uL PT 10.5 (9.0-12.0) Seconds INR 1.0 (0.9-1.1) APTT 28 (21-31) Seconds PTT Ratio 1.0 D-Dimer 410 (0-500) ug/L FEU Sodium 136 (136-145) mmol/L Potassium 4.1 (3.5-5.1) mmol/L Chloride 105 (98-107) mmol/L Carbon Dioxide 23 (21-32) mmol/L Anion Gap 8 (3-11) BUN 12 (6-23) mg/dl Creatinine 0.83 (0.6-1.2) mg/dl Est Cr Clr Drug Dosing 104.7 ml/min eGFR 96.60 BUN/Creatinine Ratio 14.5 (10-20) Glucose 95 (70-99(Fasting)) mg/dl Calcium 9.8 (8.6-10.3) mg/dl Magnesium 2.0 (1.7-2.4) mg/dl Total Bilirubin 0.6 (0.2-1.0) mg/dl AST 13 (13-39) U/L ALT 11 (7-52) U/L Alkaline Phosphatase 74 (34-104) U/L Troponin I High Sens 3.4 (0-14) pg/ml Total Protein 7.7 (6.0-8.3) gm/dl Albumin 4.6 (3.4-5.0) gm/dl Globulin 3.1 (2.5-4.0) gm/dl Albumin/Globulin Ratio 1.5 (0.9-2) Lipase 35 (11-82) U/L Procalcitonin < 0.02 (0-0.5) ng/ml TSH 1.123 (0.300-4.500) uIu/ml HCG, Qual Negative (Negative) Urine Color Yellow Urine Appearance Clear (Clear) Urine pH 6.0 (4.5-7.5) Ur Specific Carey 1.009 (1.000-1.030) Urine Protein Negative (Negative) Urine Glucose (UA) Negative (Negative) Urine Ketones 1+ H (Negative) Urine Blood Negative (Negative) Urine Nitrite Negative (Negative) Urine Bilirubin Negative (Negative) Urine Urobilinogen Negative (Negative) Ur Leukocyte Esterase Negative (Negative) Urine Comment Urine Opiates Screen Neg (Neg) Ur Methadone, Qual Neg (Neg) Urine Fentanyl Screen Neg (Neg) Urine Barbiturates Neg (Neg) Ur Phencyclidine (PCP) Neg (Neg) U Amphetamin/Meth Scrn Neg (Neg) MDMA (Ecstasy) Screen Neg (Neg) U Benzodiazepines Scrn Neg (Neg) Ur Cocaine Metabolite Neg (Neg) U Marijuana (THC) Screen Neg (Neg) Anaplasma Smear See Comment Babesia Smear See Comment Lyme Disease Screen Negative (Negative) Imaging Data Radiologist's Impression: Chest X-Ray 02/05/25 18:21 Chest radiograph, one view History: Chest pain Comparison: None Findings: Single AP view of the chest performed. No focal consolidation or pleural effusion. No pneumothorax. The cardiomediastinal silhouette is within normal limits. Normal pulmonary vascularity. No evidence for lymphadenopathy. No visualized bony or soft tissue abnormality. Impression: Normal chest radiograph Electronically signed by John Benítez 02-05-2025 6:48 PM Abdomen/Pelvis CT 02/05/25 19:10 Exam(s): CT ABDOMEN + PELVIS With Contrast IV Amt: 93ml opti 320 EXAM: CT Abdomen and Pelvis With Intravenous Contrast CLINICAL HISTORY: Reason for exam: abd/back pain. Stool incontinence. TECHNIQUE: Axial computed tomography images of the abdomen and pelvis with intravenous contrast. CTDI is 17.07 mGy and DLP is 874.28 mGy-cm. Automated exposure control was utilized for the study. A dose lowering technique was utilized adhering to the principles of ALARA. CONTRAST: Patient received 93ml Optiray 320 of IV contrast COMPARISON: 01/10/2017 FINDINGS: Lung bases: Unremarkable. No mass. No consolidation. ABDOMEN: Liver: Unremarkable. No mass. Gallbladder and bile ducts: Unremarkable. No calcified stones. No ductal dilation. Pancreas: Unremarkable. No mass. No ductal dilation. Spleen: Unremarkable. No splenomegaly. Adrenals: Unremarkable. No mass. Kidneys and ureters: Unremarkable. No solid mass. No hydronephrosis. Stomach and bowel: Unremarkable. No obstruction. No mucosal thickening. PELVIS: Appendix: The appendix is normal. Bowel loops are nondilated. There is a trace amount of free fluid in the lower left pelvis which is nonspecific. No focal bowel wall inflammation, pneumoperitoneum, or abscess is seen. Bladder: The urinary bladder is partially distended but within normal limits. Reproductive: Unremarkable as visualized. ABDOMEN and PELVIS: Intraperitoneal space: See above. Bones/joints: No acute fracture. No dislocation. Soft tissues: Unremarkable. Vasculature: Unremarkable. No abdominal aortic aneurysm. Lymph nodes: Unremarkable. No enlarged lymph nodes. IMPRESSION: The appendix is normal. Bowel loops are nondilated. There is a trace amount of free fluid in the lower left pelvis which is nonspecific. No focal bowel wall inflammation, pneumoperitoneum, or abscess is seen. Electronically signed by: Wilber Hodge MD 02/05/25 20:58 PM MDM Narrative Patient was seen and evaluated as above in room D04B. Review was performed of nursing notes and vital signs. I did review pertinent previous visits and patient history. After obtaining a thorough history and physical examination the above work up was performed. Patient presents to us today with above symptoms. The patient is well-appearing and nontoxic her vital signs stable. EKG was performed. Per my interpretation this reveals normal sinus rhythm at 60 bpm. QTc 365. QRS 58. Chest x-ray was obtained and was negative for acute process. Options of care were discussed with the patient. IV access was established per labs were drawn. IV fluids ordered. There is no leukocytosis or concerning anemia. Coags normal. D-dimer within normal range making PE less likely. No evidence of kidney or liver failure. Troponin within normal range making ACS less likely. Procalcitonin undetectable making sepsis less likely. TSH was euthyroid state. hCG negative. Lyme screen negative. Urinalysis returned without any findings to suggest UTI. 1851: I did speak with poison control regarding the patient symptoms following the local anesthetic injection for the dental procedure. The patient symptoms are not consistent with lidocaine or similar toxicity at this time. With the patient noting palpitations, chest pain, abdominal pain/back pain now with stool incontinence we will proceed with CT scan abdomen/pelvis. Results as above. This was essentially negative for emergent process. There was comment of trace amount of fluid in the lower pelvis which is nonspecific. Noting the above symptoms and progression of symptoms I did consider inpatient versus outpatient management. I do believe that further evaluation and management inpatient setting is warranted. At this time we will proceed with further evaluation and management in the inpatient setting. Case discussed with the hospitalist service. Please refer to further documentation regarding her stay. GCS: 15 In the evaluation and treatment of this patient the following differential diagnoses were entertained: Spinal cord injury, electrolyte disturbance, arrhythmia, lidocaine toxicity/local anesthetic toxicity, UTI, pyonephritis, ACS, among others Impression & Plan History of recent dental procedure, Abdominal pain, Palpitations, Fecal incontinence, Facial numbness, Back pain Discharge Plan Visit Data Chief Complaint: Allergic Reaction Stated Complaint: RECTION TO MEDICATION/LOCAL ANESTHESIA ED Provider: Tracy Coates ED Midlevel Provider: Pavan Valdez Discharge Problem: History of recent dental procedure, Abdominal pain, Palpitations, Fecal incontinence, Facial numbness, Back pain Patient Disposition: Admitted As Inpatient Condition: Good Forms Stand Alone Forms: [facility] 5g[facility] Prescriptions Prescriptions: No Action oxycodone 5 mg tablet 5 mg PO UD PRN (Reason: Pain) Referrals Referrals: Eddi Lopes DO [Primary Care Provider] -
[2025-02-05 17:10] LABS: Hematocrit (blood only) 39.0 % (37.0-47.0); Hemoglobin 13.4 g/dl (12.0-16.0); Immature Granulocytes # (auto) 0.03 K/uL (0.01-0.20); Immature Granulocytes % (auto) 0.3 %; Mean Corpuscular Hemoglobin 28.6 pg (25.0-34.0); Mean Corpuscular Volume 83.3 fL (80.0-100.0); Platelet Count 262 K/uL (130-400); RDW Standard Deviation 37.3 fL (36.4-46.3); Red Blood Count 4.68 M/uL (4.20-5.40); White Blood Count 10.37 K/ul (4.8-10.8)
[2025-02-05 17:17] LABS: Pregnancy Test, Serum Negative (Negative)
[2025-02-05 17:27] LABS: Alanine Aminotransferase 11.0 U/L (7-52); Albumin Globulin Ratio 1.5 (0.9-2); Albumin Level 4.6 gm/dl (3.4-5.0); Alkaline Phosphatase 74.0 U/L (34-104); Anion Gap 8.0 (3-11); Bilirubin,Total 0.6 mg/dl (0.2-1.0); Blood Urea Nitrogen 12.0 mg/dl (6-23); Calcium 9.8 mg/dl (8.6-10.3); Carbon Dioxide 23.0 mmol/L (21-32); Chloride 105.0 mmol/L (98-107); Creatinine Clr Calc Pharmacy 104.7 ml/min; Globulin 3.1 gm/dl (2.5-4.0); Glucose 95.0 mg/dl (70-99(Fasting)); Magnesium 2.0 mg/dl (1.7-2.4); Potassium 4.1 mmol/L (3.5-5.1); Sodium 136.0 mmol/L (136-145); Total Protein 7.7 gm/dl (6.0-8.3)
[2025-02-05 17:32] LABS: Procalcitonin < 0.02 ng/ml (0-0.5)
[2025-02-05 17:37] LABS: INR 1.0 (0.9-1.1); Partial Thromboplastin Time 28 Seconds (21-31); Prothrombin Time 10.5 Seconds (9.0-12.0)
[2025-02-05 17:41] LABS: Thyroid Stimulating Hormone 1.123 uIu/ml (0.300-4.500)
[2025-02-05] MEDS: SODIUM CHLORIDE 0.9% 1,000 ML IV ONE (17:56)
[2025-02-05 17:57] LABS: Lyme Screen Rflx Confirmation Negative (Negative)
--- NOTE | 2025-02-05 18:48 | XRay Report ---
Chest radiograph, one view History: Chest pain Comparison: None Findings: Single AP view of the chest performed. No focal consolidation or pleural effusion. No pneumothorax. The cardiomediastinal silhouette is within normal limits. Normal pulmonary vascularity. No evidence for lymphadenopathy. No visualized bony or soft tissue abnormality. Impression: Normal chest radiograph Electronically signed by John Benítez 02-05-2025 6:48 PM
--- NOTE | 2025-02-05 20:23 | History & Physical Report ---
Date of Service February 05, 2025 Assessment & Plan (1) Palpitation: (2) Fecal incontinence: (3) Diarrhea: (4) Abdominal pain: Plan Patient is a 30-year-old female without significant past medical history. She was evaluated in the ED 02/04 due to concern regarding heart palpitations however workup was negative and patient was discharged home. Patient returned to the ED 02/05 due to persistent heart palpitations and now stool incontinence, watery diarrhea, and abdominal pain. She did have a dental infection that resulted in an extraction on 02/03 in which she had roughly 10 local anesthetic injection suspected to be lidocaine. Cardiac workup has appeared negative however patient is being admitted for concern with her palpitations. Abdomen/pelvis CT pending at time of admission. #heart palpations - patient with intermittent heart palpitations, chest tightness, dyspnea, and weakness since dental extraction 02/02. TSH WNL, Lyme screen negative, troponin 3.4, EKG showed NSR, D-dimer negative, CXR negative, electrolytes stable. Possibly 2/2 dehydration with poor PO intake after dental extraction. Will monitor on telemetry overnight Echocardiogram in the morning EKG with any chest pain or palpitations as needed Repeat troponin with a.m. labs Will obtain the rest of the tick panel including Anaplasma, babesiosis, ehrlichia screen - follow blood cultures - low concern for infection given VSS, afebrile, no leukocytosis 1L NSS bolus in the ED, continue fluid resuscitation with LR at 80 mL/hour x 1 L #Stool incontinence/diarrhea/abdominal pain patient with 1 episode of stool incontinence and watery diarrhea 02/05. RUQ and LUQ ABD pain that radiates to back. Did have azithromycin approximately 1 week ago. UA, UDS, stool cultures, lipase ordered - Abdomen/pelvis CT pending Tylenol and Zofran as needed - trend CBC and BMP #Facial numbness/swelling after dental extraction 02/03, Intermittent. Low concern for infection given no leukocytosis, afebrile, VSS. CT soft tissue neck negative 02/04. - suspect 2/2 recent extraction and anesthetic agents - if becomes persistent - could consider further workup for connective tissue dz VTE ppx: SCDs, low risk and obs status - if prolonged stay consider chemical ppx Dispo: med/tele, obs - possible dc home 02/06 after echocardiogram Admission and Anticipated Discharge Date Admission Date: 02/05/25 History of Present Illness Chief Complaint: allergic reaction Primary Care Provider: Eddi Lopes DO Patient is a 30-year-old female without significant past medical history. She was evaluated in the ED 02/04 due to concern regarding heart palpitations however workup was negative and patient was discharged home. Patient returned to the ED 02/05 due to persistent heart palpitations and now stool incontinence, watery diarrhea, and abdominal pain. She did have a dental infection that resulted in an extraction on 02/03 in which she had roughly 10 local anesthetic injection suspected to be lidocaine. Cardiac workup has appeared negative however patient is being admitted for concern with her palpitations. Abdomen/pelvis CT pending at time of admission. Patient seen at bedside with her twin sister and mother present. She stated on Friday she went to the dentist for a dental infection in which they prescribed her a Z-Wally and oxycodone as needed. She only took 1 oxycodone and neither helped with her pain. She then had an extraction of 2 teeth on in which they injected her with local anesthetic approximately 10 times. After that she developed heart palpitations and they had to put her in the Trendelenburg position at the dental office. Her symptoms resolved in the s hort-term however later she persisted with intermittent palpitations. They have been persisting over the past 2 days and she does endorse a chest tightness, dyspnea, dizziness, and weakness associated with the episodes. She currently denies any current palpitations. She also endorses intermittent facial numbness on the side in which she had extraction as well as noticeable swelling. Patient was concerned today because she had an episode of stool incontinence with watery diarrhea, denies any melena or hematochezia. She also endorses bilateral abdominal pain where her kidneys are at that radiates from back to front. She denies any history of kidney stones however does have a history of frequent UTIs. She denies any dysuria, hematuria, difficulty urinating. She stated yesterday she did have difficulty urinating and had to strain however this is now resolved after IV fluids. She denies any flulike symptoms such as cough, congestion, rhinorrhea. She denies any nicotine or alcohol use. She does not take any home medications. She wishes to be full code. Handoff from ER provider stated that they spoke with [facility] who stated her symptoms are not consistent with lidocaine toxicity. Allergies Allergy/AdvReac Type Severity Reaction Status Date / Time Penicillins Allergy Severe Anaphylaxis Verified 09/09/24 13:29 Past Med/Surg History Problem List (Updated 02/05/25 @ 21:42 by Pavan Valdez PA-C) Back pain (Acute) Facial numbness (Acute) Fecal incontinence (Acute) Palpitations (Acute) Abdominal pain (Acute) History of recent dental procedure (Acute) Diarrhea Fecal incontinence H/O tooth extraction (Acute) Post-op pain (Acute) Dehydration (Acute) Palpitation (Acute) Post-operative state Abdominal pain (Acute) Dehydration (Acute) Hemorrhagic ovarian cyst (Acute) Menstrual cramps (Acute) Pelvic pain (Acute) (Acute) Pyelonephritis (Acute) Urinary tract infection (Acute) Vomiting during (Acute) No acute medical problems Abnormal uterine bleeding (AUB) Endometriosis Encounter for pre-operative examination Vomiting (Acute) (Acute) Hematemesis (Acute) Hypokalemia (Acute) Odynophagia uterine contractions in third trimester, antepartum Medical History Lumbar pain History of palpitations resolved Acid reflux no meds, controlled per pt Anxiety No meds Endometriosis reason for upcoming procedure Surgical History H/O colposcopy with cervical biopsy benign H/O laparoscopy [place] teeth extracted H/O dilation and curettage Family History Father Diabetes Grandmother (Maternal) Cervix cancer Grandmother Uterus cancer Sister Thyroid cancer Post-operative nausea and vomiting Mother Post-operative nausea and vomiting Other Breast cancer Endometriosis History of ovarian cyst Hypertension Migraine Ovarian cancer Social History Smoking Status: Never smoker Second Hand Exposure: No; Do You Dip or Chew Tobacco: No; Hx Alcohol Use: No Hx Substance Use: No Preferred Language: Romansh Communication Ability: Effective Visual Impairment: No Limitations Balance Bridge Assembler Required: No Beliefs That Will Affect Care: None marital status: Current Living Situation: Spouse and Family Current Living Situation Comment: and 2 kids Feels Safe at Home: Yes Assistive Devices: None Review of Systems Review of Systems: see HPI Physical Exam Physical Exam: The patient is awake, alert and oriented 3, well developed and well nourished, normocephalic and atraumatic, in no acute distress. Non-toxic appearing. HEENT- EOMI, mucous membranes moist. Hearing grossly intact. Heart-normal S1 and S2. No murmurs, rubs or gallops. Lungs-clear bilaterally, no respiratory distress, no accessory muscle use. Abdomen-normal bowel sounds and soft. No ascites noted. Tender to palpation of LUQ and RUQ. Extremities- no clubbing, cyanosis, or edema. Rheumatologic-normal range of motion. Psychiatric-normal affect. Results & Data Results & Data Vital Signs (Past 12 Hours) Vital Signs Temp Pulse Pulse Resp BP BP Pulse Ox 02/05/25 18:44 94 02/05/25 18:30 92 H 18 136/69 93 02/05/25 18:29 75 02/05/25 16:38 100 02/05/25 16:08 36.6 C 83 18 155/99 H 99 O2 Del Method 02/05/25 18:44 Room Air 02/05/25 18:30 Room Air 02/05/25 18:29 02/05/25 16:38 Room Air 02/05/25 16:08 Room Air Laboratory Results Reviewed CBC, CMP, PT/INR, D-dimer, magnesium, troponin, procalcitonin, TSH, hCG, Lyme screen Ordered UDS, UA, stool culture, tick panel Diagnostic Findings reviewed CXR APCT pending Medications Administered ED1L NSS bolus AdmissionLR at 80 mL/hour x 1 L ECG Additional Comments: NSR Rate 60 QTc 365 Code Status & VTE Plan Code Status full code VTE Prophylaxis Plan VTE Prophylaxis will be ordered: Yes Supervising Physician Co-Signing Physician Notes Attending addendum: I have physically seen this patient, have supervised the medical residents activities, and agree with the H&P unless as otherwise noted. Assessment and Plan: Attending addendum: I have physically seen this patient, have supervised the KRISTA's activities, and agree with the H&P unless as otherwise noted. Assessment and Plan: The patient is a 30-year-old female with no significant past medical history. She the patient was seen in the emergency department 02/04 due to concerns regarding heart palpitations, however, she had negative workup at that time, she was discharged to home. The patient returned to the emergency department 02/05 due to persistent heart palpitations For incontinence, watery diarrhea and abdominal pain. She had a history of recent dental infection resulted in extraction on 02/03 which had roughly 10 Levaquin study detections suspected to be lidocaine. Cardiac workup is. Negative liver patient came admitted concern regarding palpitations. CT abdomen pelvis pending at time of dictation Heart palpitations- TSH normal, Lyme screen normal, troponin 3.4, EKG with normal sinus rhythm and no acute ST-T changes chest x-ray negative, electrolytes normal The patient will be admitted to telemetry for serial cardiac enzymes, serial EKG's, cardiac rhythm monitoring and a 2-D echocardiogram with Dopplers. Complete tick panel including anaplasmosis, babesiosis, and ehrlichiosis. Lyme screen is already been negative Status post 1 L normal saline bolus in the ED Continue IV fluid resuscitation with LR at 80 mL/h x 1 L Stool incontinence/diarrhea/abdominal pain- Order stool cultures, stool PCR, lipase, UA and urine drug screen CT abdomen pelvis pending Acetaminophen 650 mg by mouth every 6 hours as needed pain. Zofran 4 mg IV every 6 hours as needed Follow serial CBC with differential and basic metabolic panel Remaining orders and notations as noted PG Care Time/CCT Total # of Minutes Spent Total Time Spent with Patient: Total time spent is greater than 50% in coordination of care (as documented) at patient's floor/unit and/or counseling patient: Coding Level of Care Code 99962 INT INP/OBS CARE 3/75MIN Diagnoses Palpitation R00.2 Fecal incontinence R15.9 Diarrhea R19.7 Abdominal pain R10.9
[2025-02-05 20:44] LABS: Appearance Urine Clear (Clear); Glucose Urine UA Negative (Negative)
--- NOTE | 2025-02-05 20:59 | CT Scan Report ---
Exam(s): CT ABDOMEN + PELVIS With Contrast IV Amt: 93ml opti 320 EXAM: CT Abdomen and Pelvis With Intravenous Contrast CLINICAL HISTORY: Reason for exam: abd/back pain. Stool incontinence. TECHNIQUE: Axial computed tomography images of the abdomen and pelvis with intravenous contrast. CTDI is 17.07 mGy and DLP is 874.28 mGy-cm. Automated exposure control was utilized for the study. A dose lowering technique was utilized adhering to the principles of ALARA. CONTRAST: Patient received 93ml Optiray 320 of IV contrast COMPARISON: 01/10/2017 FINDINGS: Lung bases: Unremarkable. No mass. No consolidation. ABDOMEN: Liver: Unremarkable. No mass. Gallbladder and bile ducts: Unremarkable. No calcified stones. No ductal dilation. Pancreas: Unremarkable. No mass. No ductal dilation. Spleen: Unremarkable. No splenomegaly. Adrenals: Unremarkable. No mass. Kidneys and ureters: Unremarkable. No solid mass. No hydronephrosis. Stomach and bowel: Unremarkable. No obstruction. No mucosal thickening. PELVIS: Appendix: The appendix is normal. Bowel loops are nondilated. There is a trace amount of free fluid in the lower left pelvis which is nonspecific. No focal bowel wall inflammation, pneumoperitoneum, or abscess is seen. Bladder: The urinary bladder is partially distended but within normal limits. Reproductive: Unremarkable as visualized. ABDOMEN and PELVIS: Intraperitoneal space: See above. Bones/joints: No acute fracture. No dislocation. Soft tissues: Unremarkable. Vasculature: Unremarkable. No abdominal aortic aneurysm. Lymph nodes: Unremarkable. No enlarged lymph nodes. IMPRESSION: The appendix is normal. Bowel loops are nondilated. There is a trace amount of free fluid in the lower left pelvis which is nonspecific. No focal bowel wall inflammation, pneumoperitoneum, or abscess is seen. Electronically signed by: Wilber Hodge MD 02/05/25 20:58 PM
[2025-02-05] MEDS: LACTATED RINGER'S 1,000 ML IV SCH (21:00)
[2025-02-05 21:01] LABS: Lipase 35.0 U/L (11-82)
[2025-02-05 21:40] LABS: Amphetamines+Metham, Urine Neg (Neg); MDMA (Ecstacy), Urine Neg (Neg); Marijuana, Urine Neg (Neg)
[2025-02-05] MEDS ORDERED: ONDANSETRON INJ 2 MG/ML 2 ML VIAL IV PRN (22:02)
[2025-02-05] MEDS: MELATONIN 3 MG TAB PO PRN (22:15)
[2025-02-06 07:53] LABS: Hematocrit (blood only) 34.3 % (37.0-47.0); Hemoglobin 11.9 g/dl (12.0-16.0); Mean Corpuscular Hemoglobin 29.4 pg (25.0-34.0); Mean Corpuscular Volume 84.7 fL (80.0-100.0); Platelet Count 208 K/uL (130-400); RDW Standard Deviation 38.5 fL (36.4-46.3); Red Blood Count 4.05 M/uL (4.20-5.40); White Blood Count 7.08 K/ul (4.8-10.8)
[2025-02-06 08:12] LABS: Anion Gap 7 (3-11); Blood Urea Nitrogen 7 mg/dl (6-23); Calcium 9.1 mg/dl (8.6-10.3); Carbon Dioxide 25 mmol/L (21-32); Chloride 107 mmol/L (98-107); Creatinine Clr Calc Pharmacy 118.8 ml/min; Glucose 98 mg/dl (70-99(Fasting)); Potassium 4.0 mmol/L (3.5-5.1); Sodium 139 mmol/L (136-145)
[2025-02-06 08:25] VITALS: RESP 17
[2025-02-06] MEDS: ACETAMINOPHEN 325 MG TAB PO PRN (11:11)
[2025-02-06 11:52] VITALS: TEMP 98.8; O2SAT 93
--- NOTE | 2025-02-06 14:07 | XCELERA ---
[id number]
[2025-02-06 15:21] VITALS: BP 136/86; PULSE 81
--- NOTE | 2025-02-06 15:22 | Discharge Summary ---
Discharge Summary Date of Service February 06, 2025 Principal Dx & Hospital Course #1 = Principal Diagnosis (1) Palpitation: (2) Diarrhea: (3) Abdominal pain: Plan Patient is a 30-year-old female without significant past medical history. She was evaluated in the ED 02/04 due to concern regarding heart palpitations however workup was negative and patient was discharged home. Patient returned to the ED 02/05 due to persistent heart palpitations and now stool incontinence, watery diarrhea X 1, and suprapubic abdominal pain. She did have a dental infection that resulted in an extraction of 2 teeth on 02/03 in which she had roughly 10 local anesthetic injection suspected to be lidocaine. She was admitted for further evaluation of her heart palpitations, suprapubic pain. #heart palpations - patient with intermittent heart palpitations, chest tightness, dyspnea, and weakness since dental extraction 02/03. TSH WNL, Lyme screen, babesiosis and anaplasmosis smears negative, troponin negative x 3 serially, EKG showed NSR without ischemic changes, normal intervals. D-dimer negative, CXR negative, electrolytes stable. UA consistent with dehydration with ketones. Possibly 2/2 dehydration with poor PO intake after dental extraction. She also did not sleep much at all for several nights leading up to her dental extraction and was sleep deprived. CXR negative, CT abdomen/pelvis negative except small amount of free fluid in the pelvis, CT soft tissue neck with findings suggestive of a recent extraction of maxillary and mandibular second molars on the left with some mild inferior left maxillary sinus mucosal thickening. She did not have any evidence of sepsis or infection otherwise and her leukocytosis from the previous day was resolved. Her telemetry monitoring only showed a few episodes of sinus tachycardia but otherwise normal. She did have a few episodes of her same symptoms while she was on telemetry and there were no corresponding events. Echocardiogram was normal. Orthostatic vital signs showed her blood pressure increased with standing, but her heart rate also increased from 102-116. She received IV fluids. She denied any lightheadedness with standing and no syncope. Unclear etiology of symptoms-possibly secondary to sensitivity to lidocaine but certainly not lidocaine toxicity or any cardiac arrhythmias - Stable for discharge home - Follow-up on blood cultures after discharge but low concern for infection - Follow-up on ehrlichia screen after discharge -Follow-up with PCP #Stool incontinence/diarrhea/suprapubic abdominal pain patient with 1 episode of stool incontinence and watery diarrhea 02/05. RUQ and LUQ ABD pain that radiates to back. Did complete a 5-day course of azithromycin 2 days prior to admission. She had no further loose stools in the 24 hours she was admitted. LFTs and lipase were normal, electrolytes normal. UA was normal except for ketones. She received IV fluids and her symptoms resolved. CT abdomen/pelvis negative. Likely secondary to side effect of azithromycin -Advised to contact PCP if has increasing amounts of diarrhea to be checked for C. difficile #Facial numbness/swelling after dental extraction 02/03, expected. Low concern for infection given no leukocytosis, afebrile, VSS. CT soft tissue neck negative 02/04 other than postoperative inflammation. - suspect 2/2 recent extraction and anesthetic agents -Monitor after discharge but is improving overall - Follow-up with oral surgeon as planned in 2 weeks VTE ppx: SCDs Dispo: Stable for discharge to home Notes For Next Care Provider None Medication Changes From Visit None Admission HPI Per Admitting Provider Patient is a 30-year-old female without significant past medical history. She was evaluated in the ED 02/04 due to concern regarding heart palpitations however workup was negative and patient was discharged home. Patient returned to the ED 02/05 due to persistent heart palpitations and now stool incontinence, watery diarrhea, and abdominal pain. She did have a dental infection that resulted in an extraction on 02/03 in which she had roughly 10 local anesthetic injection suspected to be lidocaine. Cardiac workup has appeared negative however patient is being admitted for concern with her palpitations. Abdomen/pelvis CT pending at time of admission. Patient seen at bedside with her twin sister and mother present. She stated on Friday she went to the dentist for a dental infection in which they prescribed her a Z-Wally and oxycodone as needed. She only took 1 oxycodone and neither helped with her pain. She then had an extraction of 2 teeth on in which they injected her with local anesthetic approximately 10 times. After that she developed heart palpitations and they had to put her in the Trendelenburg position at the dental office. Her symptoms resolved in the short-term however later she persisted with intermittent palpitations. They have been persisting over the past 2 days and she does endorse a chest tightness, dyspnea, dizziness, and weakness associated with the episodes. She currently denies any current palpitations. She also endorses intermittent facial numbness on the side in which she had extraction as well as noticeable swelling. Patient was concerned today because she had an episode of stool incontinence with watery diarrhea, denies any melena or hematochezia. She also endorses bilateral abdominal pain where her kidneys are at that radiates from back to front. She denies any history of kidney stones however does have a history of frequent UTIs. She denies any dysuria, hematuria, difficulty urinating. She stated yesterday she did have difficulty urinating and had to strain however this is now resolved after IV fluids. She denies any flulike symptoms such as cough, congestion, rhinorrhea. She denies any nicotine or alcohol use. She does not take any home medications. She wishes to be full code. Handoff from ER provider stated that they spoke with [facility] Control [facility] who stated her symptoms are not consistent with lidocaine toxicity. Discharge Exam Constitutional WD/WN, vitals as above Eyes + anicteric sclerae ENMT Left mandibular and maxillary molars extracted with some mild edema at the extraction sites without bleeding or purulent drainage Mild swelling of the left submandibular region but no tenderness to palpation or erythema Neck trachea midline, no thyromegaly Respiratory normal respiratory effort, lungs clear to auscultation Cardiovascular RRR, no murmur, no edema Gastrointestinal (Abdomen) normal bowel sounds, soft, nontender, no hepatosplenomegaly Psychiatric A+Ox3, euthymic affect Discharge Plan Discharge Items Patient Disposition: Home - Self-Care Reason For Visit: PALPITATIONS, STOOL INCONTINENCE Discharge Diagnosis: Heart palpitations Condition on Discharge: Good Activity: Resume your previous activity Non-emergency contact: Primary Care Provider Call non-emergency contact if: you have any medication questions and your symptoms worsen Follow-up/Referrals: Eddi Lopes, [Primary Care Provider] - (Follow-up within 1-2 weeks) Diet: Regular Addtl Attending Provider Instructions: You were admitted for a workup for heart palpitations, and urinary symptoms. You had no abnormal heart rhythms noted on cardiac monitoring, your blood tests were normal for heart attack, and you had an echocardiogram which was normal. Your urinary symptoms improved and you only had 1 loose stool. This may have been secondary to either the antibiotic side effect or side effect of the numbing medication for your procedure. Your thyroid, kidney function, liver tests, and electrolytes were all checked and are normal. You were also checked for several tickborne illnesses which were all negative. Your urinalysis showed ketones which is a sign of dehydration. You were given IV fluids with improvement. If you have return of worsening symptoms, feel lightheaded or pass out, rapid heartbeat or worsening heart palpitations, or any other acute concerns, please return to the ED. If you have worsening diarrhea like more than 3 or 4 times in a day, please let your primary care doctor know to check you for a bowel infection called C. difficile that can happen as a result of taking antibiotics. It was a pleasure taking care of you! If you have any questions about your care before your hospital follow-up visit with your primary care provider, please call [phone] and ask to be transferred to the [facility] Medicine office. Sincerely, Pat Lobato M.D. Pending Studies at Discharge: Yes (Blood cultures) Stand-Alone Forms: [facility], Smoking Cessation Medications and DC Order Prescriptions: Discontinued oxycodone 5 mg tablet 5 mg PO UD PRN (Reason: Pain) Discharge Orders: Discharge Order (Routine); Ordered 02/06/25 Ordered By: Pat Lobato Admission Data Admit Date/Time: 02/05/25 20:32 Attending Provider: Pat Lobato Admit Provider: Jose Manuel Marrufo Primary Care Provider: Eddi Lopes Other Providers: Jose Manuel Marrufo Hospital Stay Data Consultations 02/05/25 20:11 ED Decision to Admit Stat Diagnostic Imagining Performed 02/05/25 19:10 CT abd pelvis IV con only Stat Pending Results Patient Have Any Pending Studies at Discharge: Yes (Blood cultures) Discharge Instructions Given to Patient (Per Discharging Provider) You were admitted for a workup for heart palpitations, and urinary symptoms. You had no abnormal heart rhythms noted on cardiac monitoring, your blood tests were normal for heart attack, and you had an echocardiogram which was normal. Your urinary symptoms improved and you only had 1 loose stool. This may have been secondary to either the antibiotic side effect or side effect of the numbing medication for your procedure. Your thyroid, kidney function, liver tests, and electrolytes were all checked and are normal. You were also checked for several tickborne illnesses which were all negative. Your urinalysis showed ketones which is a sign of dehydration. You were given IV fluids with improvement. If you have return of worsening symptoms, feel lightheaded or pass out, rapid heartbeat or worsening heart palpitations, or any other acute concerns, please return to the ED. If you have worsening diarrhea like more than 3 or 4 times in a day, please let your primary care doctor know to check you for a bowel infection called C. difficile that can happen as a result of taking antibiotics. It was a pleasure taking care of you! If you have any questions about your care before your hospital follow-up visit with your primary care provider, please call [phone] and ask to be transferred to the [facility] Medicine office. Sincerely, Pat Lobato M.D. Total Time Total Time Spent Total Time Spent (In Minutes): 35 minutes Total Time Includes: Examination of the Patient, Discharge Planning and Medication Reconciliation Coding Level of Care Code 09004 INP/OBS DISCH >30 MIN Diagnoses Palpitation R00.2 Diarrhea R19.7 Abdominal pain R10.9
--- NOTE | 2025-02-06 19:12 | Electrocardiogram Report ---
Test Reason : Blood Pressure : */* mmHG Vent. Rate : 68 BPM Atrial Rate : 68 BPM P-R Int : 118 ms QRS Dur : 58 ms QT Int : 344 ms P-R-T Axes : 14 46 42 degrees QTcB Int : 365 ms Normal sinus rhythm When compared with ECG of 04-Feb-2025 14:09, No significant change was found Confirmed by Cesar Mason ([id number]) on 02/06/2025 7:11:57 PM Referred By: REFERRED SELF Confirmed By: Cesar Mason
== END 2025-02-06 15:50 | disposition home or self-care (01) ==
LOC: 2N 16:04 → ED 16:04 → SUATTDRO 20:32 → 2N 21:45